=== PATIENT | male | born 1985 | race Caucasian/White ===

== ENCOUNTER 2019-12-07 16:06 | Emergency (ER) | payer OTHER ==
--- NOTE | 2019-12-07 16:25 | ED Physician Documentation ---
History of Present Illness - Stated complaint Stated Complaint: LEFT NECK SWELLING - Chief complaint Chief Complaint: Heent - History obtained from History obtained from: Patient - Additonal information Additional information: About a week and a half ago he developed a painful mass on the left side of the neck. Was seen in the walk-in clinic and was started on Augmentin. He has not resolved despite the Augmentin and he feels like the swelling has moved a bit posteriorly although it is not much larger. He denies fevers or chills. He is never had anything like this before except when he had mono as a teenager. Review of Systems Constitutional: reports: Reviewed and negative Eyes: reports: Reviewed and negative Ears: reports: Reviewed and negative Nose: reports: Reviewed and negative Throat: reports: Reviewed and negative PD PAST MEDICAL HISTORY - Past Surgical History Past Surgical History: Yes General: Cholecystectomy - Present Medications Home Medications: Ambulatory Orders Medication Instructions Recorded Confirmed Amoxicillin/Potassium Clav [Amox 1 each PO BID 12/07/19 12/07/19 Tr-K Clv 875-125 mg Tab] - Allergies Allergies/Adverse Reactions: Allergies Allergy/AdvReac Type Severity Reaction Status Date / Time No Known Drug Allergies Allergy Verified 12/07/19 16:13 - Social History Does the pt smoke?: Yes Smoking Status: Current every day smoker Does the pt drink ETOH?: Yes Does the pt have substance abuse?: No - Immunizations Immunizations are current?: Yes Immunizations: TDAP current <10years - POLST Patient has POLST: No PD ED PE NORMAL - Vitals Vital signs reviewed: Yes - General General: Alert and oriented X 3, No acute distress - HEENT HEENT: Other (There is about a 4 cm mobile tender mass, potentially slightly fluctuant inferior to the angle of the left mandible. No warmth or cellulitis. Visualized portions of the oropharynx are normal.) - Neck Neck: Supple, no meningeal sign - Neuro Neuro: Alert and oriented X 3, Normal speech Results - Vitals Vitals: Vital Signs - 24 hr 12/07/19 12/07/19 16:14 16:26 Temperature 36.6 C 37.5 C Heart Rate 67 66 Respiratory 16 22 Rate Blood Pressure 114/62 139/71 H O2 Saturation 98 100 Oxygen O2 Source Room air - Labs Labs: Laboratory Tests 12/07/19 12/07/19 16:44 16:44 WBC 9.0 RBC 5.14 Hgb 16.6 Hct 47.4 MCV 92.2 MCH 32.3 H MCHC 35.0 RDW 12.5 Plt Count 260 MPV 9.8 Neut # (Auto) 6.2 Lymph # (Auto) 1.9 [place] # (Auto) 0.8 Eos # (Auto) 0.0 Baso # (Auto) 0.1 Absolute Nucleated RBC 0.00 Nucleated RBC % 0.0 Sodium 139 Potassium 3.6 Chloride 102 Carbon Dioxide 24 Anion Gap 13.0 BUN 9 Creatinine 0.8 Estimated GFR (MDRD) 111 Glucose 95 Calcium 9.9 Total Bilirubin 2.6 H AST 18 ALT 18 Alkaline Phosphatase 49 Total Protein 8.1 Albumin 5.2 Globulin 2.9 Albumin/Globulin Ratio 1.8 Lipase 22 - Rads (name of study) Ct Neck with contrast Radiology: EMP read contemporaneously (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 Consistent with branchial cleft cyst infection both on physical examination and CT is concordant. Case discussed by phone with Dr. Jorge burk, ENT in [place]. It will probably be a couple of days before they can see him, and as such recommended a needle aspiration of the cyst to temporize with culture. This was done with both Visible and subjective improvement on his part. 15 mL was aspirated. It was pus. It was sent for culture. Departure - Departure Disposition: Home, Self Care Clinical Impression: Branchial cleft cyst Condition: Good Record reviewed to determine appropriate education?: Yes Instructions: ED Cyst Sebaceous Infec Abx Tx Comments: You were seen today for a left branchial cleft cyst with infection. I discussed your case with Dr. Jorge Burk who is an ear nose and throat surgeon in [place]. They would like you to call tomorrow, . He plans to see you on , but you should call sooner if worsening. We did do a needle aspiration of the cyst, a culture is pending and we will call if it is resistant to Augmentin.
[2019-12-07 16:54] LABS: BASOPHILS # (AUTO) 0.1 10^3/uL (0.0-0.1); BASOPHILS % (AUTO) 0.6 %; EOSINOPHILS % (AUTO) 0.3 %; HGB - HEMOGLOBIN 16.6 g/dL (14.0-18.0); LYMPHOCYTES # (AUTO) 1.9 10^3/uL (1.5-3.5); LYMPHOCYTES % (AUTO) 21.5 %; MEAN CORPUSCULAR HEMOGLOBIN 32.3 pg (27.0-31.0); MEAN CORPUSCULAR VOLUME 92.2 fL (80.0-94.0); MEAN PLATELET VOLUME 9.8 fL (7.4-11.4); MONOCYTES # (AUTO) 0.8 10^3/uL (0.0-1.0); MONOCYTES % (AUTO) 8.5 %; NEUTROPHILS # (AUTO) 6.2 10^3/uL (1.5-6.6); NEUTROPHILS % (AUTO) 68.8 %; PLT - PLATELET COUNT 260 10^3/uL (130-450); RED BLOOD COUNT 5.14 10^6/uL (4.70-6.10); RED CELL DISTRIBUTION WIDTH 12.5 % (12.0-15.0)
[2019-12-07] MEDS ORDERED: IOVERSOL 320 100 ML VIAL IVP ONE ×2 (17:02→17:39)
[2019-12-07 17:05] LABS: ALBUMIN 5.2 g/dL (3.2-5.5); ALBUMIN/GLOBULIN RATIO 1.8 (1.0-2.2); BILIRUBIN,TOTAL 2.6 mg/dL (0.2-1.0); CALCIUM 9.9 mg/dL (8.5-10.3); CREATININE 0.8 mg/dL (0.6-1.2); TOTAL PROTEIN 8.1 g/dL (6.7-8.2)
--- NOTE | 2019-12-07 17:54 | CT Report ---
PROCEDURE: SOFT TISSUE NECK W INDICATIONS: L neck mass CONTRAST: IV CONTRAST: Optiray 320 ml: 100 PO CONTRAST: *NO PO CONTRAST TECHNIQUE: After the administration of intravenous contrast, 3.0 mm axial sections acquired from the sella to th e aortic arch. Additional oblique axial 3.0 mm sections acquired through the pharynx. 3 mm thick co michael reformats were generated. For radiation dose reduction, the following was used: automated exp osure control, adjustment of mA and/or kV according to patient size. COMPARISON: None. FINDINGS: Image quality: Excellent. Lymph nodes: No enlarged lymph nodes seen throughout the neck. Vessels: Visualized vasculature appears patent. Neck spaces: Just deep to the soft tissue marker, along anterior aspect of the left sternocleidomasto id muscle, there is a water density cyst seen that measures 3 x 3 x 4.1 cm. A mild degree of rim enha ncement can be seen. No solid appearing masses are seen. The oropharynx, nasopharynx, and pharynx demonstrate no mucosal lesions. The vocal cords, false voca l cords, pyriform sinuses, epiglottis, vallecula, and tongue base all appear normal. Glands: The parotid and submandibular glands appear normal. The thyroid is normal in size. Miscellaneous: Visualized brain and orbits appear normal. Lung apices appear clear. Superficial so ft tissues appear normal. Bones: No suspicious bony lesions. Visualized sinuses and mastoids appear unremarkable. IMPRESSION: There is a water density cyst seen along the anterior aspect of the left sternocleidomastoid muscle. Given the mild rim enhancement, this may be infected. Please correlate with known patient history. 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 Reviewed by: Jose Hector MD on 12/07/2019 4:53 PM [email or web address] Approved by: Jose Hector MD on 12/07/2019 4:53 PM AKDT Station ID: [id number]
[2019-12-07] MEDS ORDERED: LIDOCAINE 1%-EPI 1:100000 20 ML MDV SUBQ STA (18:29)
[2019-12-07 18:52] VITALS: BP 137/107
== END 2019-12-07 18:51 | disposition home or self-care (01) ==
LOC: ED 16:06
DX: Q18.0 Sinus, fistula and cyst of branchial cleft (principal); F17.200 Nicotine dependence, unspecified, uncomplicated
CPT/HCPCS: 10160; 36415; 70491; 80053; 83690; 85025; 87070; 87205; 99282; 99284; Q9967

== ENCOUNTER 2020-03-10 20:18 | Inpatient (IN) | payer OTHER ==
[2020-03-10] MEDS ORDERED: HYDROmorphone 1 MG/ML CARPUJECT IVP STA ×2 (20:41→22:02)
[2020-03-10] MEDS ORDERED: SODIUM CHLORIDE 0.9% 1,000 ML IV STA (20:41)
[2020-03-10] MEDS ORDERED: ONDANSETRON 4 MG/2 ML VIAL IVP STA (20:41)
--- NOTE | 2020-03-10 20:46 | ED Physician Documentation ---
History of Present Illness - Stated complaint Stated Complaint: ABD PX/FEVER - Chief complaint Chief Complaint: Abd Pain - History obtained from History obtained from: Patient - History of Present Illness Timing: How many days ago (2) - Additonal information Additional information: 35-year-old male presents to the emergency department for evaluation of severe abdominal pain. He reports that it began as "generalized nonfocal" abdominal pain 2 days ago but has since migrated to the right side of the abdomen. He does report a history of previous cholecystectomy. He states that his thermostat has felt off and he has had no vomiting or diarrhea. He denies dysuria. On initial presentation to the emergency department this gentleman is in a kneeling position on the bed rocking back and forth moaning uncontrollably. It took quite some time before he could place himself into a supine position for labs and further evaluation. Review of Systems Constitutional: reports: Reviewed and negative Cardiac: reports: Reviewed and negative Respiratory: reports: Reviewed and negative GI: reports: Abdominal Pain. denies: Nausea, Vomiting : denies: Dysuria, Frequency, Hesitancy Skin: denies: Rash Musculoskeletal: reports: Reviewed and negative Neurologic: reports: Reviewed and negative PD PAST MEDICAL HISTORY - Past Medical History Past Medical History: Yes Other Past Medical History: Crigler-Najaar - Past Surgical History Past Surgical History: Yes General: Cholecystectomy - Present Medications Home Medications: Ambulatory Orders Medication Instructions Recorded Confirmed Amoxicillin/Potassium Clav [Amox 1 each PO BID 12/07/19 12/07/19 Tr-K Clv 875-125 mg Tab] - Allergies Allergies/Adverse Reactions: Allergies Allergy/AdvReac Type Severity Reaction Status Date / Time No Known Drug Allergies Allergy Verified 03/10/20 20:22 - Social History Does the pt smoke?: Yes Smoking Status: Current every day smoker Does the pt drink ETOH?: Yes Does the pt have substance abuse?: No - Immunizations Immunizations are current?: Yes Immunizations: TDAP current <10years - POLST Patient has POLST: No PD ED PE EXPANDED - General General: Alert, In Pain, In distress - Neck Neck: Supple w/out meningeal sx, No tenderness - Cardiac Cardiac: Regular Rate, Regular Rhythm, Radial strong equal, Pedal strong equal, Cap refill < 2 sec - Respiratory Respiratory: Clear to ausultation collette. No: Distress, Labored - Abdomen Abdomen: Tender to palpation, Rebound, Guarding (Right-sided abdominal tenderness with guarding and rebound.) - Derm Derm: Normal color. No: Rash - Neuro Neuro: Alert and Oriented X 3, CNII-XII intact - GCS Eye Opening: Spontaneous Motor: Obeys Commands Verbal: Oriented Total: 15 Results - Vitals Vitals: Vital Signs - 24 hr 03/10/20 20:22 Temperature 36.9 C Heart Rate 98 Respiratory 18 Rate Blood Pressure 133/86 H O2 Saturation 95 Oxygen O2 Source Room air - Labs Labs: Laboratory Tests 03/10/20 03/10/20 21:00 21:00 WBC 11.9 H RBC 5.37 Hgb 16.9 Hct 47.5 MCV 88.5 MCH 31.5 H MCHC 35.6 RDW 12.4 Plt Count 168 MPV 10.0 Neut # (Auto) 10.4 H Lymph # (Auto) 0.4 L [place] # (Auto) 1.0 Eos # (Auto) 0.0 Baso # (Auto) 0.0 Absolute Nucleated RBC 0.00 Nucleated RBC % 0.0 Sodium 134 L Potassium 3.8 Chloride 97 L Carbon Dioxide 22 Anion Gap 15.0 H BUN 8 Creatinine 1.0 Estimated GFR (MDRD) 86 L Glucose 162 H Calcium 9.5 Total Bilirubin 1.9 H AST 20 ALT 18 Alkaline Phosphatase 49 Total Protein 7.9 Albumin 4.4 Globulin 3.5 Albumin/Globulin Ratio 1.3 Lipase 16 L - Rads (name of study) CT abd Radiology: Final report received (Acute appendicitis. Thickening of cecum is likely secondary to direct spread of inflammation/infection. Small amount of free fluid in the right lower quadrant. No fluid collections to suggest abscess at this time.) PD MEDICAL DECISION MAKING - ED course Complexity details: reviewed results, re-evaluated patient, d/w patient ED course: 35-year-old male presents to the emergency department with 2 days of severe right-sided abdominal pain. Examined presentation is most worrisome for acute appendicitis. CT of the abdomen with contrast is pending as well as routine labs. 2200: CT scan is completed and findings are consistent with acute appendicitis. I have discussed this case with Dr. Lopez on surgery. She will write to admit the patient to the hospital with plan to take him to surgery in the a.m. Unasyn 3 g IV has been ordered. The case the plan has been discussed with the patient and he is in agreement. Additional IV pain medications have been ordered. Departure - Departure Disposition: ED Transfer to [facility] Clinical Impression: Acute appendicitis Qualifiers: Acute appendicitis type: with localized peritonitis Appendicitis gangrene presence: without gangrene Appendicitis perforation presence: unspecified whether perforation present Appendicitis abscess presence: unspecified whether abscess present Qualified Code(s): K35.30 - Acute appendicitis with localized peritonitis, without perforation or gangrene Condition: Stable
[2020-03-10] MEDS ORDERED: IOVERSOL 320 100 ML VIAL IVP ONE ×2 (20:58→21:44)
[2020-03-10 21:07] LABS: BASOPHILS % (AUTO) 0.3 %; EOSINOPHILS % (AUTO) 0.1 %; HGB - HEMOGLOBIN 16.9 g/dL (14.0-18.0); LYMPHOCYTES # (AUTO) 0.4 10^3/uL (1.5-3.5); LYMPHOCYTES % (AUTO) 2.9 %; MEAN CORPUSCULAR HEMOGLOBIN 31.5 pg (27.0-31.0); MEAN CORPUSCULAR HGB CONC 35.6 g/dL (32.0-36.0); MEAN CORPUSCULAR VOLUME 88.5 fL (80.0-94.0); MONOCYTES % (AUTO) 8.5 %; NEUTROPHILS # (AUTO) 10.4 10^3/uL (1.5-6.6); NEUTROPHILS % (AUTO) 87.6 %; PLT - PLATELET COUNT 168 10^3/uL (130-450); RED BLOOD COUNT 5.37 10^6/uL (4.70-6.10); RED CELL DISTRIBUTION WIDTH 12.4 % (12.0-15.0); WHITE BLOOD COUNT 11.9 x10^3/uL (4.8-10.8)
[2020-03-10 21:22] LABS: ALBUMIN 4.4 g/dL (3.2-5.5); ALBUMIN/GLOBULIN RATIO 1.3 (1.0-2.2); BILIRUBIN,TOTAL 1.9 mg/dL (0.2-1.0); CALCIUM 9.5 mg/dL (8.5-10.3); TOTAL PROTEIN 7.9 g/dL (6.7-8.2)
[2020-03-10] MEDS ORDERED: AMPICILLIN/SULBACTAM 3 GM in SODIUM CHLORIDE 0.9% MINIBAG 100 ML IV STA (21:56)
--- NOTE | 2020-03-10 21:57 | CT Report ---
PROCEDURE: Abdomen/Pelvis W INDICATIONS: 2 days right sided abdomianl pain; ? appy CONTRAST: IV CONTRAST: Optiray 320 ml: 100 PO CONTRAST: *NO PO CONTRAST TECHNIQUE: After the administration of intravenous contrast, 5 mm thick sections acquired from the diaphragms to the symphysis. 5 mm thick coronal and sagittal reformats were acquired. For radiation dose reducti on, the following was used: automated exposure control, adjustment of mA and/or kV according to beulah ent size. COMPARISON: None. FINDINGS: Image quality: Excellent. ABDOMEN: Lung bases: Lung bases are clear. Heart size is normal. Solid organs: Liver and spleen are normal in size and enhancement. Gallbladder is absent. Biliary system is non dilated. Pancreas enhances normally. No adrenal nodules. Kidneys demonstrate normal size and enhancement, without hydronephrosis. Peritoneum and bowel: Appendix is thickened measuring up to 11.5 mm in diameter. There is appendicea l wall thickening and increased enhancement. Appendicoliths are present. There is marked marcie-appendi ceal stranding. The CT findings are consistent with acute appendicitis. There is thickening of cecum, likely secondary to direct spread of inflammation and infection. A small amount of free fluid is pre sent in the right lower quadrant. No drainable fluid collections. No free air. Nodes and vessels: No retroperitoneal or mesenteric adenopathy by size criteria. Aorta and inferior vena cava are normal in size. Miscellaneous: No ventral hernias. PELVIS: Genitourinary: Bladder wall thickness is normal. Miscellaneous: No inguinal hernias or adenopathy. Bones: No suspicious bony lesions. No vertebral body compression fractures. IMPRESSION: 1. Acute appendicitis. 2. Thickening of cecum is likely secondary to direct spread of inflammation/infection. 3. There is a small amount of free fluid in the right lower quadrant. No fluid collections to suggest abscess at this time. 4. Cholecystectomy. The result was discussed with Dr. Dillon. Reviewed by: Dalton Fraser MD on 03/10/2020 9:56 PM PDT Approved by: Dalton Fraser MD on 03/10/2020 9:56 PM PDT Station ID: [id number]
[2020-03-10] MEDS ORDERED: ONDANSETRON 4 MG/2 ML VIAL IVP PRN (22:24)
[2020-03-10] MEDS ORDERED: HYDROmorphone 1 MG/ML CARPUJECT IVP PRN (22:24)
[2020-03-10] MEDS ORDERED: LORazepam 2 MG/ML VIAL IVP PRN (22:24)
[2020-03-10] MEDS ORDERED: SODIUM CHLORIDE FLUSH 0.9% 10 ML SYRINGE IVP PRN (22:24)
[2020-03-10] MEDS ORDERED: DEXTROSE 5%-0.45% NACL 1,000 ML IV SCH (23:00)
[2020-03-10] MEDS ORDERED: ACETAMINOPHEN 1,000 MG/100 ML 100 ML IV SCH (23:00)
[2020-03-11] MEDS ORDERED: LORazepam 2 MG/ML VIAL IVP PRN (00:34)
[2020-03-11] MEDS ORDERED: ACETAMINOPHEN 1,000 MG/100 ML 100 ML IV SCH (01:00)
[2020-03-11] MEDS: D5.45NS W/20 MEQ KCL 1,000 ML IV SCH ×3 (01:24→20:02)
[2020-03-11] MEDS: SODIUM CHLORIDE FLUSH 0.9% 10 ML SYRINGE IVP SCH ×7 (01:24→23:52)
[2020-03-11] MEDS: HYDROmorphone 0.5 MG/0.5 ML SYRINGE IVP PRN ×2 (02:05→04:56)
[2020-03-11] MEDS ORDERED: AMPICILLIN/SULBACTAM 3 GM in SODIUM CHLORIDE 0.9% MINIBAG 100 ML IV SCH ×5 (03:00→04:00)
[2020-03-11] MEDS ORDERED: CALAMINE/ZINC OXIDE 177 ML BOTTLE TOP PRN (04:13)
[2020-03-11 05:47] LABS: BASOPHILS % (AUTO) 0.3 %; EOSINOPHILS % (AUTO) 0.3 %; LYMPHOCYTES # (AUTO) 0.6 10^3/uL (1.5-3.5); LYMPHOCYTES % (AUTO) 5.8 %; MEAN CORPUSCULAR HEMOGLOBIN 31.5 pg (27.0-31.0); MEAN CORPUSCULAR HGB CONC 34.9 g/dL (32.0-36.0); MEAN CORPUSCULAR VOLUME 90.3 fL (80.0-94.0); MEAN PLATELET VOLUME 10.2 fL (7.4-11.4); MONOCYTES # (AUTO) 1.2 10^3/uL (0.0-1.0); MONOCYTES % (AUTO) 11.4 %; NEUTROPHILS # (AUTO) 8.3 10^3/uL (1.5-6.6); NEUTROPHILS % (AUTO) 81.8 %; PLT - PLATELET COUNT 141 10^3/uL (130-450); RED BLOOD COUNT 4.76 10^6/uL (4.70-6.10); RED CELL DISTRIBUTION WIDTH 12.5 % (12.0-15.0); WHITE BLOOD COUNT 10.1 x10^3/uL (4.8-10.8)
[2020-03-11 05:51] LABS: CALCIUM 8.3 mg/dL (8.5-10.3); CREATININE 0.9 mg/dL (0.6-1.2)
[2020-03-11] MEDS: PANTOPRAZOLE 40 MG VIAL IVP SCH (06:20)
[2020-03-11] MEDS ORDERED: PANTOPRAZOLE 40 MG VIAL IVP SCH (07:00)
[2020-03-11] MEDS: HYDROmorphone 1 MG/ML CARPUJECT IVP PRN ×11 (07:52→23:47)
[2020-03-11] MEDS: ACETAMINOPHEN 1,000 MG/100 ML 100 ML IV SCH ×3 (07:52→19:39)
[2020-03-11] MEDS: SODIUM CHLORIDE FLUSH 0.9% 10 ML SYRINGE IVP PRN ×2 (07:52→07:56)
[2020-03-11] MEDS: ONDANSETRON 4 MG/2 ML VIAL IVP PRN ×2 (07:55→15:18)
[2020-03-11] MEDS: AMPICILLIN/SULBACTAM 3 GM in SODIUM CHLORIDE 0.9% MINIBAG 100 ML IV SCH ×3 (10:30→23:47)
--- NOTE | 2020-03-11 11:31 | ANESTHESIA ---
Pre-Anesthesia VS, & Labs - Diagnosis Acute appendicitis - Procedure Lap Appy Vital Signs: Temp Pulse Resp BP Pulse Ox 37.1 C 76 16 110/56 L 97 03/11/20 07:48 03/11/20 07:48 03/11/20 07:48 03/11/20 07:48 03/11/20 07:48 Height: 6 ft Weight (kg): 72.5 kg Body Mass Index: 21.7 BMI Classification: Healthy weight - NPO >8 hours - Lab Results Current Lab Results: Laboratory Tests 03/11/20 05:40: Sodium 133 L, Potassium 3.3 L, Chloride 101, Carbon Dioxide 21, Anion Gap 11.0, BUN 7, Creatinine 0.9, Estimated GFR (MDRD) 97, Glucose 125 H, Calcium 8.3 L 03/11/20 05:40: WBC 10.1, RBC 4.76, Hgb 15.0, Hct 43.0, MCV 90.3, MCH 31.5 H, MCHC 34.9, RDW 12.5, Plt Count 141, MPV 10.2, Neut # (Auto) 8.3 H, Lymph # (Auto) 0.6 L, [place] # (Auto) 1.2 H, Eos # (Auto) 0.0, Baso # (Auto) 0.0, Absolute Nucleated RBC 0.00, Nucleated RBC % 0.0 03/10/20 21:00: Sodium 134 L, Potassium 3.8, Chloride 97 L, Carbon Dioxide 22, Anion Gap 15.0 H, BUN 8, Creatinine 1.0, Estimated GFR (MDRD) 86 L, Glucose 162 H, Calcium 9.5, Total Bilirubin 1.9 H, AST 20, ALT 18, Alkaline Phosphatase 49, Total Protein 7.9, Albumin 4.4, Globulin 3.5, Albumin/Globulin Ratio 1.3, Lipase 16 L 03/10/20 21:00: WBC 11.9 H, RBC 5.37, Hgb 16.9, Hct 47.5, MCV 88.5, MCH 31.5 H, MCHC 35.6, RDW 12.4, Plt Count 168, MPV 10.0, Neut # (Auto) 10.4 H, Lymph # (Auto) 0.4 L, [place] # (Auto) 1.0, Eos # (Auto) 0.0, Baso # (Auto) 0.0, Absolute Nucleated RBC 0.00, Nucleated RBC % 0.0 Fish Bones: 03/11/20 05:40 03/11/20 05:40 Home Medications and Allergies Home Medications: Ambulatory Orders No Known Home Medications 03/11/20 Active Medications Calamine (Calamine Lotion) 1 applic TOP PRN PRN PRN Reason: SKIN CARE Hydromorphone HCl (Dilaudid Inj Carp) 1 mg IVP Q1HR PRN PRN Reason: PAIN Last Admin: 03/11/20 07:52 Dose: 1 mg Documented by: Potassium Chloride/Dextrose/Sod Cl (D5.45ns W/20 Meq Kcl) 1,000 mls @ 100 mls/hr IV .Q10H COUNT INCLUDES THE [facility] Last Infusion: 03/11/20 04:45 Dose: 100 mls/hr Documented by: Acetaminophen (Ofirmev) 100 mls @ 400 mls/hr IV Q6H COUNT INCLUDES THE [facility] Last Admin: 03/11/20 07:52 Dose: 400 mls/hr Documented by: Ampicillin Sodium/Sulbactam (Sodium 3 gm/ Sodium Chloride) 100 mls @ 200 mls/hr IV Q6HR COUNT INCLUDES THE [facility] Last Admin: 03/11/20 10:30 Dose: 200 mls/hr Documented by: Lorazepam (Ativan Inj (Vial)) 0.5 mg IVP Q1H PRN PRN Reason: Anxiety Ondansetron HCl (Zofran Inj) 4 mg IVP Q6H PRN PRN Reason: Nausea / Vomiting Last Admin: 03/11/20 07:55 Dose: 4 mg Documented by: Pantoprazole Sodium (Protonix) 40 mg IVP QDAC COUNT INCLUDES THE [facility] Last Admin: 03/11/20 06:20 Dose: 40 mg Documented by: Sodium Chloride (Normal Saline Flush 0.9%) 10 ml IVP 0100,0900,1700 COUNT INCLUDES THE [facility] Last Admin: 03/11/20 07:52 Dose: 10 ml Documented by: Sodium Chloride (Normal Saline Flush 0.9%) 10 ml IVP 0100,0900,1700 COUNT INCLUDES THE [facility] Last Admin: 03/11/20 02:06 Dose: Not Given Documented by: Sodium Chloride (Normal Saline Flush 0.9%) 10 ml IVP PRN PRN PRN Reason: NEEDED PER PROVIDER ORDERS Last Admin: 03/11/20 07:56 Dose: 10 ml Documented by: No Known Home Medications 03/11/20 Allergies/Adverse Reactions: Allergies Allergy/AdvReac Type Severity Reaction Status Date / Time No Known Drug Allergies Allergy Verified 03/10/20 20:22 Anes History & Medical History - Anesthetic History Anesthesia Complications: reports: No previous complications - Medical History Cardiovascular: reports: None Pulmonary: reports: None Gastrointestinal: reports: Other (Crigler-Elvia) Urinary: reports: None Neuro: reports: None Musculoskeletal: reports: None Endocrine/Autoimmune: reports: None, Other Blood Disorders: reports: None Skin: reports: None Smoking Status: Former smoker (Quit 05/13/2019) Psychosocial: reports: No issues indicated History of Cancer?: No Other Past Medical History: Crigler-Najaar - Surgical History General: Cholecystectomy Orthopedic: Other (right femur fracture s/p ORIF. Patellar tendon rupture) Exam General: Alert, Oriented x3, Cooperative, No acute distress Dental: WNL Mouth Openin Fingerbreadth Neck Mobility: Normal Mallampati classification: II Thyromental Distance: 4-6 cm Mental/Cognitive Status: Alert/Oriented X3, Normal for patient Plan Anesthesia Type: General Consent for Procedure(s) Verified and Reviewed: Yes Code Status: Attempt Resuscitation ASA classification: 2-Mild systemic disease Is this case an emergency?: No
--- NOTE | 2020-03-11 13:50 | HISTORY & PHYSICAL EXAMINATION ---
HPI - Admitted From Admitted from: ED - History Obtained From Records Reviewed: RN notes reviewed History obtained from: Patient Exam limitations: No limitations - History of Present Illness Pain/Problem Location Description: Mid and right lower quadrant abdominal pain. Severity at the worst: reports: Severe Pain Quality: reports: Sharp, Aching, Cramping Context-Pain started w/: reports: Rest Timing: reports: Gradual onset Duration: reports: Days: (2-3) Improved with: reports: Nothing Worsened by: reports: Exertion, Movement, Palpation Associated symptoms: reports: Nausea, General Weakness. denies: Shortness of air, Diaphoresis, Vomiting, Palpitations, Cough PMH/PSH - Past Medical History Cardiovascular: positive: None Respiratory: positive: None Neuro: positive: None Endocrine/Autoimmune: positive: None, Other GI: positive: Other (Tresagler-Elvia) : positive: None Musculoskeletal: positive: None Derm: positive: None MRSA Hx?: No Other Past Medical History: Elaine - Past Surgical History General: positive: Cholecystectomy Ortho: positive: Other (right femur fracture s/p ORIF. Patellar tendon rupture) Social & Family Hx - Social History Does the pt smoke?: Yes Smoking Status: Former smoker (Quit 05/13/2019) Does the pt drink ETOH?: Yes Does the pt have substance abuse?: No - POLST Patient has POLST: No Meds/Allgy - Home Medications Home Medications: Ambulatory Orders Medication Instructions Recorded Confirmed No Known Home Medications 03/11/20 03/11/20 - Allergies Allergies/Adverse Reactions: Allergies Allergy/AdvReac Type Severity Reaction Status Date / Time No Known Drug Allergies Allergy Verified 03/10/20 20:22 Review of Systems - Constitutional Constitutional: reports: Chills, Malaise. denies: Fatigue, Fever - Eyes Eyes: denies: Pain, Irritation - Ears, Nose & Throat Ears, Nose & Throat: denies: Hearing loss, Hearing aids, Tinnitus, Vertigo - Cardiovascular Cariovascular: denies: Irregular heart rate, Palpitations, Chest pain, Edema - Respiratory Respiratory: denies: Cough, Sputum production, Wheezing - Gastrointestinal Gastrointestinal: reports: Abdominal pain, Nausea, Poor appetite. denies: Abdominal distention, Constipation, Black stools, Bloody stools, Reflux/heartburn, Bloating - Genitourinary Genitourinary: denies: Dysuria, Frequency - Musculoskeletal Musculoskeletal: denies: Muscle pain, Back pain, Muscle aches, Stiffness - Integumentary Integumentary: denies: Rash - Neurological Neurological: denies: General weakness, Focal weakness - Endocrine Endocrine: denies: Polyuria - Hematologic/Lymphatic Hematologic/Lymphatic: denies: Bruising - All Other Systems All Other Systems: reports: Reviewed and negative Exam - Vital Signs Reviewed Vital Signs: Yes Vital Signs: Vital Signs x48h Temp Pulse Resp BP Pulse Ox 03/11/20 12:09 37.0 C 74 16 116/55 L 98 03/11/20 07:48 37.1 C 76 16 110/56 L 97 03/11/20 06:29 36.9 C 71 16 115/52 L 97 - Physical Exam General Appearance: positive: Alert, Mild distress Eyes Bilateral: positive: Normal inspection, PERRL, EOMI ENT: positive: ENT inspection nml, Pharynx nml, No signs of dehydration Neck: positive: Nml inspection, Thyroid nml, No JVD Respiratory: positive: Chest non-tender, No respiratory distress Cardiovascular: positive: Regular rate & rhythm, No murmur, No gallop Peripheral Pulses: positive: 2+ Abdomen: positive: Tenderness, Guarding, Rebound Back: positive: Nml inspection. negative: CVA tenderness (R), CVA tenderness (L) Skin: positive: Color nml Extremities: positive: Non-tender, Full ROM, Nml appearance. negative: Calf tenderness Neurologic/Psychiatric: positive: Oriented x3 Results - Lab Results Fish Bones: 03/11/20 05:40 03/11/20 05:40 Other Lab Results: Lab Results x24hrs 03/11/20 03/11/20 03/10/20 Range/Units 05:40 05:40 21:00 WBC 10.1 (4.8-10.8) x10^3/uL RBC 4.76 (4.70-6.10) 10^6/uL Hgb 15.0 (14.0-18.0) g/dL Hct 43.0 (42.0-52.0) % MCV 90.3 (80.0-94.0) fL MCH 31.5 H (27.0-31.0) pg MCHC 34.9 (32.0-36.0) g/dL RDW 12.5 (12.0-15.0) % Plt Count 141 (130-450) 10^3/uL MPV 10.2 (7.4-11.4) fL Neut # (Auto) 8.3 H (1.5-6.6) 10^3/uL Lymph # (Auto) 0.6 L (1.5-3.5) 10^3/uL [place] # (Auto) 1.2 H (0.0-1.0) 10^3/uL Eos # (Auto) 0.0 (0.0-0.7) 10^3/uL Baso # (Auto) 0.0 (0.0-0.1) 10^3/uL Absolute Nucleated RBC 0.00 x10^3/uL Nucleated RBC % 0.0 /100WBC Sodium 133 L 134 L (135-145) mmol/L Potassium 3.3 L 3.8 (3.5-5.0) mmol/L Chloride 101 97 L (101-111) mmol/L Carbon Dioxide 21 22 (21-32) mmol/L Anion Gap 11.0 15.0 H (6-13) BUN 7 8 (6-20) mg/dL Creatinine 0.9 1.0 (0.6-1.2) mg/dL Estimated GFR (MDRD) 97 86 L (>89) Glucose 125 H 162 H (70-100) mg/dL Calcium 8.3 L 9.5 (8.5-10.3) mg/dL Total Bilirubin 1.9 H (0.2-1.0) mg/dL AST 20 (10-42) IU/L ALT 18 (10-60) IU/L Alkaline Phosphatase 49 (42-121) IU/L Total Protein 7.9 (6.7-8.2) g/dL Albumin 4.4 (3.2-5.5) g/dL Globulin 3.5 (2.1-4.2) g/dL Albumin/Globulin Ratio 1.3 (1.0-2.2) Lipase 16 L (22-51) U/L 03/10/20 Range/Units 21:00 WBC 11.9 H (4.8-10.8) x10^3/uL RBC 5.37 (4.70-6.10) 10^6/uL Hgb 16.9 (14.0-18.0) g/dL Hct 47.5 (42.0-52.0) % MCV 88.5 (80.0-94.0) fL MCH 31.5 H (27.0-31.0) pg MCHC 35.6 (32.0-36.0) g/dL RDW 12.4 (12.0-15.0) % Plt Count 168 (130-450) 10^3/uL MPV 10.0 (7.4-11.4) fL Neut # (Auto) 10.4 H (1.5-6.6) 10^3/uL Lymph # (Auto) 0.4 L (1.5-3.5) 10^3/uL [place] # (Auto) 1.0 (0.0-1.0) 10^3/uL Eos # (Auto) 0.0 (0.0-0.7) 10^3/uL Baso # (Auto) 0.0 (0.0-0.1) 10^3/uL Absolute Nucleated RBC 0.00 x10^3/uL Nucleated RBC % 0.0 /100WBC Sodium (135-145) mmol/L Potassium (3.5-5.0) mmol/L Chloride (101-111) mmol/L Carbon Dioxide (21-32) mmol/L Anion Gap (6-13) BUN (6-20) mg/dL Creatinine (0.6-1.2) mg/dL Estimated GFR (MDRD) (>89) Glucose (70-100) mg/dL Calcium (8.5-10.3) mg/dL Total Bilirubin (0.2-1.0) mg/dL AST (10-42) IU/L ALT (10-60) IU/L Alkaline Phosphatase (42-121) IU/L Total Protein (6.7-8.2) g/dL Albumin (3.2-5.5) g/dL Globulin (2.1-4.2) g/dL Albumin/Globulin Ratio (1.0-2.2) Lipase (22-51) U/L - Diagnostic Imaging Results Diagnostic Imaging Results Comments: Acute appendicitis with a small amount of free fluid in the right lower quadrant. No mass or clear evidence of abscess. Impression/Plan - Problem List Problem List: Acute appendicitis with likely rupture. I have recommended urgent diagnostic laparoscopy with appendectomy and indicated procedures. We have discussed the risks and benefits of the procedure and the patient has expressed a desire to complete the procedure today.
[2020-03-11] MEDS ORDERED: LIDOCAINE 1%-EPI 1:100000 20 ML MDV ONE ×2 (14:00→15:41)
[2020-03-11] MEDS ORDERED: BUPIVACAINE 0.5% PF 30 ML VIAL ONE ×2 (14:00→15:41)
[2020-03-11] MEDS ORDERED: BUPIVACAINE 0.5% PF 30 ML VIAL SUBQ ONE ×2 (15:53→16:55)
[2020-03-11] MEDS ORDERED: LIDOCAINE 1%-EPI 1:100000 20 ML MDV SUBQ ONE ×2 (15:53→16:55)
[2020-03-11] MEDS ORDERED: KETOROLAC 30 MG/ML VIAL IVP ONE (16:10)
[2020-03-11] MEDS ORDERED: ROCURONIUM 50 MG/5 ML VIAL IVP ONE (16:10)
[2020-03-11] MEDS ORDERED: PROPOFOL 200 MG/20 ML VIAL IVP ONE (16:10)
[2020-03-11] MEDS ORDERED: ONDANSETRON 4 MG/2 ML VIAL IVP ONE (16:10)
[2020-03-11] MEDS ORDERED: LIDOCAINE-MPF 2% 5 ML VIAL IM ONE (16:10)
[2020-03-11] MEDS ORDERED: DEXAMETHASONE 4 MG/ML VIAL IVP ONE (16:10)
[2020-03-11] MEDS ORDERED: MIDAZOLAM 2 MG/2 ML VIAL IVP ONE (16:10)
[2020-03-11] MEDS ORDERED: NEOSTIGMINE 1 MG/1 ML 10 ML MDV IVP ONE (16:10)
[2020-03-11] MEDS ORDERED: fentaNYL 100 MCG/2 ML VIAL IVP ONE (16:10)
[2020-03-11] MEDS ORDERED: GLYCOPYRROLATE 1 MG/5 ML VIAL IVP ONE (16:10)
--- NOTE | 2020-03-11 17:04 | OPERATIVE REPORT ---
Operative Report - General Admit Date: 03/11/20 Procedure Date: 03/11/20 Planned Procedure: Laparoscopy with appendectomy Pre-Op Diagnosis: Acute appendicitis Procedure Performed: Laparoscopy with appendectomy and drain placement Post Op Diagnosis: Perforated appendicitis with right lower quadrant abscess - Procedure Note Primary Surgeon: Elham Anesthesia Provider: COURTNEY Sanders Anesthesia Technique: General ET tube, Local Pathology: Appendix to pathology in formalin Estimated Blood Loss (mL): 20 Drain/Tube Type: Satinder drain Findings: Perforated appendicitis with large RLQ phlegmon and abscess Complications: None apparent - Other Other Information/Narrative: After obtaining informed consent, the patient is brought to the operating room and placed in the supine position on the operating table. Following successful induction of general endotracheal anesthesia, appropriate padding of all bony prominences, and placement of appropriate monitors, the abdomen was prepped and draped in the standard surgical fashion. A timeout was held per scope protocol. All elements of the surgical safety checklist were followed before, during, and after the procedure. Following infiltration with local anesthetic to create a field block, an incision was created inferior to the umbilicus and carried down through the skin and subcutaneous tissue to reveal the fascia below. 2-0 Vicryl retention sutures were placed on either side of the midline and the abdomen was entered under direct vision using a 15 blade scalpel. A 10 mm blunt Rhodes balloon trocar was placed in the abdominal cavity and it was insufflated to 15 mmHg pressure. The patient was placed in Trendelenburg position with the left side rotated toward the floor. The camera was placed in the abdominal cavity and we immediately visualized an inflammatory process in the right lower quadrant including the cecum and distal ileum. The cecum was rotated medially to reveal a very long appendix with necrosis and perforation of the retro cecal portion of the structure. This was associated with a thick and foul smelling abscess cavity. Gentle lysis of adhesions was undertaken and the anatomy carefully defined. The mesentery of the appendix was foreshortened and stiff. The appendix was quite difficult to mobilize. This was done with great care until the entire structure was clearly visualized from its attachment at the cecum to the tip. A window was created in the mesoappendix at this location. A laparoscopic stapling device was used to ligate the appendix and liberated from its attachment to the cecum. Two additional loads of the device were used to divide its mesentery.The appendix was placed in an Endo Catch bag and removed via the umbilical port with a camera in the epigastric position. The camera was replaced in the operative site examined. It was irrigated with warm saline solution and aspirated free of all fluid and particulate matter. A Satinder drain was placed through the umblilical port and brought out in the suprpubic position. This was positioned in the right para colic gutter and through the abscess cavity. It was sewn into place. The table was flattened and the abdomen evaluated once again. The trochars were removed under direct vision and abdomen was desufflated. The umbilical incision was closed with interrupted Vicryl suture and Monocryl stitches were placed in the skin. All sponge, needles, and instrument counts were correct at the conclusion of the case. The patient was allowed to wake from anesthesia without difficulty and taken to the postanesthesia care unit in good condition.
[2020-03-11] MEDS ORDERED: LACTATED RINGERS 1,000 ML IV ONE (17:09)
[2020-03-11] MEDS ORDERED: fentaNYL 100 MCG/2 ML VIAL IVP PRN (17:24)
[2020-03-11] MEDS ORDERED: NALOXONE 0.4 MG/ML VIAL IVP PRN (17:24)
[2020-03-11] MEDS ORDERED: HYDROmorphone 0.5 MG/0.5 ML SYRINGE IVP PRN (17:24)
[2020-03-11] MEDS ORDERED: ONDANSETRON 4 MG/2 ML VIAL IVP PRN (17:24)
[2020-03-11] MEDS ORDERED: ATROPINE ABBOJECT 1 MG/10 ML SYRINGE IVP PRN (17:24)
[2020-03-11] MEDS ORDERED: MORPHINE 2 MG/ML CARPUJECT IVP PRN (17:24)
--- NOTE | 2020-03-11 17:24 | ANESTHESIA POST OP EVALUATION ---
Anesthesia Post Eval - Post Anesthesia Eval Vitals: Last Vital Signs Temp 37.5 C 03/11/20 15:45 Pulse 65 03/11/20 15:45 Resp 18 03/11/20 15:45 BP 115/54 L 03/11/20 16:00 Pulse Ox 95 03/11/20 15:45 CV Function Including HR & BP: positive: Stable Pain Control: positive: Satisfactory Nausea & Vomiting: positive: Negative Mental Status: positive: Baseline Respiratory Status: Airway Patent Hydration Status: Satisfactory Anesthesia Complications: positive: None
[2020-03-11] MEDS ORDERED: HYDROmorphone 1 MG/ML CARPUJECT ONE (17:35)
[2020-03-11] MEDS ORDERED: LACTATED RINGERS 1,000 ML IV SCH (18:00)
[2020-03-11] MEDS: PREGABALIN 25 MG CAPSULE PO SCH (20:02)
[2020-03-11] MEDS: methocarbamoL 500 MG TABLET PO PRN (22:01)
[2020-03-12] MEDS: ONDANSETRON 4 MG/2 ML VIAL IVP PRN (00:03)
[2020-03-12] MEDS: SODIUM CHLORIDE FLUSH 0.9% 10 ML SYRINGE IVP SCH ×6 (00:52→23:47)
[2020-03-12] MEDS: ACETAMINOPHEN 1,000 MG/100 ML 100 ML IV SCH ×4 (01:26→20:25)
[2020-03-12] MEDS: HYDROmorphone 1 MG/ML CARPUJECT IVP PRN ×9 (03:51→18:01)
[2020-03-12] MEDS: methocarbamoL 500 MG TABLET PO PRN ×3 (04:25→16:47)
[2020-03-12] MEDS: AMPICILLIN/SULBACTAM 3 GM in SODIUM CHLORIDE 0.9% MINIBAG 100 ML IV SCH ×4 (06:04→23:46)
[2020-03-12] MEDS: PANTOPRAZOLE 40 MG VIAL IVP SCH (06:04)
[2020-03-12 06:10] LABS: BASOPHILS % (AUTO) 0.1 %; EOSINOPHILS % (AUTO) 0.1 %; LYMPHOCYTES # (AUTO) 0.5 10^3/uL (1.5-3.5); MEAN CORPUSCULAR HGB CONC 33.9 g/dL (32.0-36.0); MEAN CORPUSCULAR VOLUME 91.4 fL (80.0-94.0); MEAN PLATELET VOLUME 10.7 fL (7.4-11.4); MONOCYTES # (AUTO) 0.9 10^3/uL (0.0-1.0); MONOCYTES % (AUTO) 13.4 %; NEUTROPHILS # (AUTO) 5.5 10^3/uL (1.5-6.6); NEUTROPHILS % (AUTO) 79.1 %; PLT - PLATELET COUNT 129 10^3/uL (130-450); RED CELL DISTRIBUTION WIDTH 12.7 % (12.0-15.0)
[2020-03-12 06:15] LABS: CREATININE 0.8 mg/dL (0.6-1.2)
[2020-03-12] MEDS: PREGABALIN 25 MG CAPSULE PO SCH ×2 (08:50→21:19)
[2020-03-12] MEDS: D5.45NS W/20 MEQ KCL 1,000 ML IV SCH (08:50)
[2020-03-12] MEDS: oxyCODONE 5 MG TABLET PO PRN ×4 (11:18→22:53)
--- NOTE | 2020-03-12 13:22 | PROVIDER PROGRESS NOTE ---
Subjective - General Admit Date: 03/11/20 Procedure Date: 03/11/20 Post Op Days: 1 Procedure Performed: Lap Appy with evacuation of abscess and drain placement - Review of Systems Wound/Incisions: positive: Healing well Drain Type: Satinder Drain Output Description: Serous with a few stringy clots Approximate mls Output: minimal General: positive: No symptoms HEENT: positive: No symptoms Pulmonary: positive: No symptoms Cardiovascular: positive: No symptoms Gastrointestinal: positive: No symptoms Genitourinary: positive: No symptoms All Other Systems: positive: Reviewed and negative - Other Other Information/Narrative: Pain has been an issue but he feels it is under better control at the moment. No nausea. Watching television with legs bent in the bed Objective - Patient Data Vital Signs: Vital Signs x48h Temp Pulse Pulse Resp BP Pulse Ox 03/12/20 11:40 36.6 C 78 20 112/67 99 03/12/20 08:59 37.0 C 72 18 115/54 L 98 Weight: Weight 03/10/20 03/11/20 03/12/20 23:59 23:59 23:59 Weight (kg) 77.111 kg 72.5 kg Intake & Output: Intake and Output Totals x24h 03/10/20 03/11/20 03/12/20 23:59 23:59 23:59 Intake Total 1100 3197.667 1540.000 Output Total 840 545 Balance 1100 2357.667 995.000 - Lab Results Lab Results: 03/12/20 05:16 03/12/20 05:16 Other Lab Results: Lab Results x24hrs 03/12/20 03/12/20 Range/Units 05:16 05:16 WBC 7.0 (4.8-10.8) x10^3/uL RBC 4.20 L (4.70-6.10) 10^6/uL Hgb 13.0 L (14.0-18.0) g/dL Hct 38.4 L (42.0-52.0) % MCV 91.4 (80.0-94.0) fL MCH 31.0 (27.0-31.0) pg MCHC 33.9 (32.0-36.0) g/dL RDW 12.7 (12.0-15.0) % Plt Count 129 L (130-450) 10^3/uL MPV 10.7 (7.4-11.4) fL Neut # (Auto) 5.5 (1.5-6.6) 10^3/uL Lymph # (Auto) 0.5 L (1.5-3.5) 10^3/uL [place] # (Auto) 0.9 (0.0-1.0) 10^3/uL Eos # (Auto) 0.0 (0.0-0.7) 10^3/uL Baso # (Auto) 0.0 (0.0-0.1) 10^3/uL Absolute Nucleated RBC 0.00 x10^3/uL Nucleated RBC % 0.0 /100WBC Sodium 136 (135-145) mmol/L Potassium 3.6 (3.5-5.0) mmol/L Chloride 103 (101-111) mmol/L Carbon Dioxide 23 (21-32) mmol/L Anion Gap 10.0 (6-13) BUN 6 (6-20) mg/dL Creatinine 0.8 (0.6-1.2) mg/dL Estimated GFR (MDRD) 111 (>89) Glucose 119 H (70-100) mg/dL Calcium 8.0 L (8.5-10.3) mg/dL - Current Medications Current Medications: Current Medications Generic Name Dose Route Start Last Admin Trade Name Freq PRN Reason Stop Dose Admin Hydromorphone HCl 1 mg 03/12/20 10:48 03/12/20 12:38 Dilaudid Inj Carp IVP 1 mg Q1H PRN Administration Breakthrough Pain Acetaminophen 100 mls @ 400 mls/hr 03/11/20 08:00 03/12/20 07:47 Ofirmev IV Not Given Q6H MILVIA Ampicillin Sodium/Sulbactam 100 mls @ 200 mls/hr 03/11/20 11:00 03/12/20 11:31 Sodium 3 gm/ Sodium Chloride IV 200 mls/hr Q6HR MILVIA Administration Methocarbamol 500 mg 03/11/20 19:06 03/12/20 10:20 Robaxin PO 500 mg Q6HR PRN Administration Spasms Ondansetron HCl 4 mg 03/11/20 00:34 03/12/20 00:03 Zofran Inj IVP 4 mg Q6H PRN Administration Nausea / Vomiting Oxycodone HCl 5 mg 03/12/20 10:41 03/12/20 11:18 Roxicodone PO 5 mg Q4HR PRN Administration PAIN Pantoprazole Sodium 40 mg 03/11/20 07:00 03/12/20 06:04 Protonix IVP 40 mg QDAC MILVIA Administration Pregabalin 75 mg 03/11/20 21:00 03/12/20 08:50 Lyrica PO 75 mg BID MILVIA Administration Sodium Chloride 10 ml 03/11/20 01:00 03/12/20 08:51 Normal Saline Flush 0.9% IVP Not Given 0100,0900,1700 MILVIA Sodium Chloride 10 ml 03/11/20 01:00 03/12/20 08:53 Normal Saline Flush 0.9% IVP Not Given 0100,0900,1700 MILVIA Sodium Chloride 10 ml 03/11/20 00:34 03/11/20 07:56 Normal Saline Flush 0.9% IVP 10 ml PRN PRN Administration NEEDED PER PROVIDER ORDERS ABX Reporting Has patient been on IV antibiotics over the past 48 hours?: Yes Impression/Plan - Problem List Problem List: Continue antibiotics and current pain regimen as changed this morning. We need the drain for at least 48 hours. Labs are reassurring.
[2020-03-12] MEDS: SODIUM CHLORIDE FLUSH 0.9% 10 ML SYRINGE IVP PRN (20:25)
[2020-03-12] MEDS: KETOROLAC 30 MG/ML VIAL IVP SCH (20:26)
[2020-03-13] MEDS: SODIUM CHLORIDE FLUSH 0.9% 10 ML SYRINGE IVP SCH ×5 (00:55→17:41)
[2020-03-13] MEDS: HYDROmorphone 1 MG/ML CARPUJECT IVP PRN ×7 (00:58→21:18)
[2020-03-13] MEDS: ACETAMINOPHEN 1,000 MG/100 ML 100 ML IV SCH ×4 (01:23→20:03)
[2020-03-13] MEDS: oxyCODONE 5 MG TABLET PO PRN ×5 (03:19→21:56)
[2020-03-13] MEDS: ONDANSETRON 4 MG/2 ML VIAL IVP PRN ×2 (03:27→17:30)
[2020-03-13 05:43] LABS: BASOPHILS % (AUTO) 0.5 %; EOSINOPHILS # (AUTO) 0.1 10^3/uL (0.0-0.7); EOSINOPHILS % (AUTO) 0.8 %; HGB - HEMOGLOBIN 12.6 g/dL (14.0-18.0); LYMPHOCYTES # (AUTO) 0.9 10^3/uL (1.5-3.5); LYMPHOCYTES % (AUTO) 14.7 %; MEAN CORPUSCULAR HEMOGLOBIN 30.9 pg (27.0-31.0); MEAN CORPUSCULAR HGB CONC 33.7 g/dL (32.0-36.0); MEAN CORPUSCULAR VOLUME 91.7 fL (80.0-94.0); MEAN PLATELET VOLUME 10.2 fL (7.4-11.4); MONOCYTES % (AUTO) 16.4 %; NEUTROPHILS # (AUTO) 4.3 10^3/uL (1.5-6.6); NEUTROPHILS % (AUTO) 67.1 %; PLT - PLATELET COUNT 137 10^3/uL (130-450); RED BLOOD COUNT 4.08 10^6/uL (4.70-6.10); RED CELL DISTRIBUTION WIDTH 12.9 % (12.0-15.0); WHITE BLOOD COUNT 6.3 x10^3/uL (4.8-10.8)
[2020-03-13 05:46] LABS: CREATININE 0.8 mg/dL (0.6-1.2)
[2020-03-13] MEDS: AMPICILLIN/SULBACTAM 3 GM in SODIUM CHLORIDE 0.9% MINIBAG 100 ML IV SCH ×3 (05:54→18:50)
[2020-03-13] MEDS: PANTOPRAZOLE 40 MG VIAL IVP SCH (05:54)
[2020-03-13] MEDS: KETOROLAC 30 MG/ML VIAL IVP SCH ×3 (05:54→18:08)
--- NOTE | 2020-03-13 06:51 | PHARMACY PROGRESS NOTE ---
- Best Possible Medication History Admit Date and Time: 03/11/20 0034 Processed by: Pharmacy Medication History completed: Yes As the person ultimately responsible for medication therapy, providers are able to order a medication from an existing home medication list in [facility] via the "Reconcile Routine" prior to Confirmation of that medication by application support consultant. Such practice is discouraged except when the physician, in their clinical judgment, deems that a medical need exists for a medication without regard to previous use.
--- NOTE | 2020-03-13 08:40 | PROVIDER PROGRESS NOTE ---
Subjective - General Admit Date: 03/11/20 Procedure Date: 03/11/20 Post Op Days: 2 Procedure Performed: Lap Appy with evacuation of abscess and drain placement - Review of Systems Wound/Incisions: positive: Healing well Drain Type: Satinder Drain Output Description: Serous with a few stringy clots Approximate mls Output: minimal General: positive: No symptoms HEENT: positive: No symptoms Pulmonary: positive: No symptoms Cardiovascular: positive: No symptoms Gastrointestinal: positive: No symptoms Genitourinary: positive: No symptoms All Other Systems: positive: Reviewed and negative - Other Other Information/Narrative: A little better today. Pain is much better controlled and he is planning to walk Objective - Patient Data Vital Signs: Vital Signs x48h Temp Pulse Pulse Resp BP Pulse Ox 03/13/20 08:11 37.1 C 64 18 109/53 L 95 03/13/20 03:40 37 C 69 20 115/55 L 95 Weight: Weight 03/11/20 03/12/20 03/13/20 23:59 23:59 22:59 Weight (kg) 72.5 kg Intake & Output: Intake and Output Totals x24h 03/11/20 03/12/20 03/13/20 23:59 23:59 22:59 Intake Total 3197.667 3450.000 300 Output Total 840 3745 420 Balance 2357.667 -295.000 -120 - Lab Results Lab Results: 03/13/20 05:15 03/13/20 05:15 Other Lab Results: Lab Results x24hrs 03/13/20 03/13/20 Range/Units 05:15 05:15 WBC 6.3 (4.8-10.8) x10^3/uL RBC 4.08 L (4.70-6.10) 10^6/uL Hgb 12.6 L (14.0-18.0) g/dL Hct 37.4 L (42.0-52.0) % MCV 91.7 (80.0-94.0) fL MCH 30.9 (27.0-31.0) pg MCHC 33.7 (32.0-36.0) g/dL RDW 12.9 (12.0-15.0) % Plt Count 137 (130-450) 10^3/uL MPV 10.2 (7.4-11.4) fL Neut # (Auto) 4.3 (1.5-6.6) 10^3/uL Lymph # (Auto) 0.9 L (1.5-3.5) 10^3/uL [place] # (Auto) 1.0 (0.0-1.0) 10^3/uL Eos # (Auto) 0.1 (0.0-0.7) 10^3/uL Baso # (Auto) 0.0 (0.0-0.1) 10^3/uL Absolute Nucleated RBC 0.00 x10^3/uL Nucleated RBC % 0.0 /100WBC Sodium 136 (135-145) mmol/L Potassium 3.1 L (3.5-5.0) mmol/L Chloride 102 (101-111) mmol/L Carbon Dioxide 25 (21-32) mmol/L Anion Gap 9.0 (6-13) BUN 5 L (6-20) mg/dL Creatinine 0.8 (0.6-1.2) mg/dL Estimated GFR (MDRD) 111 (>89) Glucose 93 (70-100) mg/dL Calcium 8.0 L (8.5-10.3) mg/dL - Current Medications Current Medications: Current Medications Generic Name Dose Route Start Last Admin Trade Name Praneethq PRN Reason Stop Dose Admin Hydromorphone HCl 1 mg 03/12/20 10:48 03/13/20 08:06 Dilaudid Inj Carp IVP 1 mg Q1H PRN Administration Breakthrough Pain Acetaminophen 100 mls @ 400 mls/hr 03/11/20 08:00 03/13/20 08:05 Ofirmev IV 400 mls/hr Q6H MILVIA Administration Ampicillin Sodium/Sulbactam 100 mls @ 200 mls/hr 03/11/20 11:00 03/13/20 06:36 Sodium 3 gm/ Sodium Chloride IV Infused Q6HR MILVIA Infusion Ketorolac Tromethamine 30 mg 03/12/20 20:00 03/13/20 05:54 Toradol Inj (30mg) IVP 03/17/20 19:59 30 mg Q6HR MILVIA Administration Methocarbamol 500 mg 03/11/20 19:06 03/12/20 16:47 Robaxin PO 500 mg Q6HR PRN Administration Spasms Ondansetron HCl 4 mg 10/30/20 00:34 03/13/20 03:27 Zofran Inj IVP 4 mg Q6H PRN Administration Nausea / Vomiting Oxycodone HCl 5 mg 03/12/20 10:41 03/13/20 03:19 Roxicodone PO 5 mg Q4HR PRN Administration PAIN Pantoprazole Sodium 40 mg 03/11/20 07:00 03/13/20 05:54 Protonix IVP 40 mg QDAC MILVIA Administration Pregabalin 75 mg 03/11/20 21:00 03/12/20 21:19 Lyrica PO 75 mg BID MILVIA Administration Sodium Chloride 10 ml 03/11/20 01:00 03/13/20 08:06 Normal Saline Flush 0.9% IVP 10 ml 0100,0900,1700 MILVIA Administration Sodium Chloride 10 ml 03/11/20 01:00 03/13/20 00:55 Normal Saline Flush 0.9% IVP Not Given 0100,0900,1700 MILVIA Sodium Chloride 10 ml 03/11/20 00:34 03/12/20 20:25 Normal Saline Flush 0.9% IVP 10 ml PRN PRN Administration NEEDED PER PROVIDER ORDERS - Physical Exam Wound/Incisions: positive: Healing well General Appearance: positive: No acute distress Respiratory: positive: Chest non-tender Cardiovascular: positive: Regular rate & rhythm Abdomen: positive: Other (soft and appropriately tender with active bowel sounds. Drainage is serous and clear) Skin: positive: Color nml Neurologic/Psychiatric: positive: Oriented x3 Impression/Plan - Problem List Problem List: Continue antibiotics. Ambulate in the halls today and try to avoid narcotics if possible. Plan to remove the drain and consider discharge if he continues to improve.
[2020-03-13] MEDS: POTASSIUM CHLORIDE 10 MEQ CAPSULE PO SCH ×3 (09:05→21:17)
[2020-03-13] MEDS: PREGABALIN 25 MG CAPSULE PO SCH ×2 (09:06→21:17)
[2020-03-13] MEDS: SODIUM CHLORIDE FLUSH 0.9% 10 ML SYRINGE IVP PRN ×3 (09:07→18:46)
[2020-03-13] MEDS: metroNIDAZOLE 500 MG/100 ML 500 MG/100 ML BAG IV SCH (17:35)
[2020-03-14] MEDS: SODIUM CHLORIDE FLUSH 0.9% 10 ML SYRINGE IVP SCH ×6 (00:36→17:28)
[2020-03-14] MEDS: KETOROLAC 30 MG/ML VIAL IVP SCH ×4 (00:36→18:25)
[2020-03-14] MEDS: AMPICILLIN/SULBACTAM 3 GM in SODIUM CHLORIDE 0.9% MINIBAG 100 ML IV SCH ×4 (00:51→18:26)
[2020-03-14] MEDS: SODIUM CHLORIDE FLUSH 0.9% 10 ML SYRINGE IVP PRN ×6 (01:17→20:24)
[2020-03-14] MEDS: HYDROmorphone 1 MG/ML CARPUJECT IVP PRN ×8 (01:17→22:25)
[2020-03-14] MEDS: metroNIDAZOLE 500 MG/100 ML 500 MG/100 ML BAG IV SCH ×2 (01:21→06:35)
[2020-03-14] MEDS: oxyCODONE 5 MG TABLET PO PRN ×5 (02:07→22:15)
[2020-03-14] MEDS: ACETAMINOPHEN 1,000 MG/100 ML 100 ML IV SCH ×2 (02:37→08:11)
[2020-03-14 05:43] LABS: BUN - BLOOD UREA NITROGEN < 5 mg/dL (6-20); CARBON DIOXIDE - CO2 22 mmol/L (21-32); CHLORIDE 102 mmol/L (101-111); CREATININE 0.8 mg/dL (0.6-1.2); GLUCOSE 91 mg/dL (70-100); SODIUM 135 mmol/L (135-145)
[2020-03-14] MEDS: PANTOPRAZOLE 40 MG VIAL IVP SCH (06:06)
[2020-03-14] MEDS: POTASSIUM CHLORIDE 10 MEQ CAPSULE PO SCH ×3 (06:11→22:15)
[2020-03-14] MEDS: PREGABALIN 25 MG CAPSULE PO SCH ×2 (08:50→20:24)
[2020-03-14] MEDS: POTASSIUM CHLOR 10 MEQ/100 ML 10 MEQ/100 ML BAG IV SCH ×4 (08:51→13:17)
--- NOTE | 2020-03-14 09:26 | PROVIDER PROGRESS NOTE ---
Subjective - General Admit Date: 03/11/20 Procedure Date: 03/11/20 Post Op Days: 3 Procedure Performed: Lap Appy with evacuation of abscess and drain placement - Review of Systems Wound/Incisions: positive: Healing well Drain Type: Satinder Drain Output Description: Serous with a few stringy clots Approximate mls Output: minimal General: positive: No symptoms HEENT: positive: No symptoms Pulmonary: positive: No symptoms Cardiovascular: positive: No symptoms Gastrointestinal: positive: No symptoms Genitourinary: positive: No symptoms All Other Systems: positive: Reviewed and negative - Other Other Information/Narrative: Fever and diarrhea over night and generally feels weak today. Has walked some in the halls. Objective - Patient Data Reviewed Vital Signs: Yes Vital Signs: Vital Signs x48h Temp Pulse Resp BP Pulse Ox 03/14/20 08:34 36.7 C 83 18 113/57 L 96 03/14/20 05:00 89 20 116/46 L 97 Intake & Output: Intake and Output Totals x24h 03/13/20 03/13/20 03/14/20 00:59 23:59 23:59 Intake Total 1460 Output Total 60 Balance 1400 - Lab Results Lab Results: 03/13/20 05:15 03/14/20 05:04 Other Lab Results: Lab Results x24hrs 03/14/20 Range/Units 05:04 Sodium 135 (135-145) mmol/L Potassium 2.8 L (3.5-5.0) mmol/L Chloride 102 (101-111) mmol/L Carbon Dioxide 22 (21-32) mmol/L Anion Gap 11.0 (6-13) BUN < 5 L (6-20) mg/dL Creatinine 0.8 (0.6-1.2) mg/dL Estimated GFR (MDRD) 111 (>89) Glucose 91 (70-100) mg/dL Calcium 8.0 L (8.5-10.3) mg/dL - Current Medications Current Medications: Current Medications Generic Name Dose Route Start Last Admin Trade Name Freq PRN Reason Stop Dose Admin Hydromorphone HCl 1 mg 03/12/20 10:48 03/14/20 05:51 Dilaudid Inj Carp IVP 1 mg Q1H PRN Administration Breakthrough Pain Ampicillin Sodium/Sulbactam 100 mls @ 200 mls/hr 03/11/20 11:00 11/02/20 06:38 Sodium 3 gm/ Sodium Chloride IV Infused Q6HR MILVIA Infusion Potassium Chloride 10 meq in 100 mls @ 100 mls/hr 03/14/20 09:00 03/14/20 08:51 Potassium Chloride IV 03/14/20 12:59 100 mls/hr Q1H MILVIA Administration Ketorolac Tromethamine 30 mg 03/12/20 20:00 03/14/20 05:51 Toradol Inj (30mg) IVP 03/17/20 19:59 30 mg Q6HR MILVIA Administration Methocarbamol 500 mg 03/11/20 19:06 03/12/20 16:47 Robaxin PO 500 mg Q6HR PRN Administration Spasms Ondansetron HCl 4 mg 03/11/20 00:34 03/13/20 17:30 Zofran Inj IVP 4 mg Q6H PRN Administration Nausea / Vomiting Oxycodone HCl 5 mg 03/12/20 10:41 03/14/20 08:12 Roxicodone PO 5 mg Q4HR PRN Administration PAIN Pantoprazole Sodium 40 mg 03/11/20 07:00 03/14/20 06:06 Protonix IVP 40 mg QDAC MILVIA Administration Potassium Chloride 10 meq 03/13/20 09:00 03/14/20 06:11 Micro-K PO 10 meq TID MILVIA Administration Pregabalin 75 mg 03/11/20 21:00 03/14/20 08:50 Lyrica PO 75 mg BID MILVIA Administration Sodium Chloride 10 ml 03/11/20 01:00 03/14/20 08:53 Normal Saline Flush 0.9% IVP 10 ml 0100,0900,1700 MILVIA Administration Sodium Chloride 10 ml 03/11/20 01:00 03/14/20 09:00 Normal Saline Flush 0.9% IVP Not Given 0100,0900,1700 MILVIA Sodium Chloride 10 ml 03/11/20 00:34 03/14/20 06:06 Normal Saline Flush 0.9% IVP 10 ml PRN PRN Administration NEEDED PER PROVIDER ORDERS - Physical Exam Wound/Incisions: positive: Healing well, Other (Drain output is more voluminous and cloudy now. Consistent with purulence) General Appearance: positive: No acute distress Eyes Bilateral: positive: Normal inspection ENT: positive: ENT inspection nml Neck: positive: Nml inspection Respiratory: positive: Chest non-tender, No respiratory distress Cardiovascular: positive: Regular rate & rhythm Abdomen: positive: Other (soft, appropriately tender, active bowel sounds) Neurologic/Psychiatric: positive: Oriented x3 ABX Reporting Has patient been on IV antibiotics over the past 48 hours?: Yes Impression/Plan - Problem List Problem List: 3 days out and spiking temps through vanc. Flagyl added last PM after diarrhea started. Will check c.diff today. Hold flagyl for now. Start Vanc for enterococcus. Leave drain in place. Add probiotic
[2020-03-14] MEDS ORDERED: VANCOMYCIN INJ 1 GM in SODIUM CHLORIDE 0.9% 250 ML IV SCH (10:00)
[2020-03-14] MEDS ORDERED: VANCOMYCIN INJ 1 GM, VANCOMYCIN INJ 500 MG in SODIUM CHLORIDE 0.9% 500 ML IV SCH (10:30)
[2020-03-14] MEDS: SACCHAROMYCES BOULARDII 250 MG CAPSULE PO SCH (17:27)
[2020-03-14] MEDS ORDERED: VANCOMYCIN 1 GM VIAL ONE ×2 (20:01→20:09)
[2020-03-14] MEDS ORDERED: VANCOMYCIN 500 MG VIAL ONE (20:09)
[2020-03-14] MEDS: VANCOMYCIN INJ 1 GM, VANCOMYCIN INJ 250 MG in SODIUM CHLORIDE 0.9% 250 ML IV SCH (20:24)
[2020-03-14] MEDS: metroNIDAZOLE 250 MG TABLET PO SCH (20:38)
[2020-03-15] MEDS: SODIUM CHLORIDE FLUSH 0.9% 10 ML SYRINGE IVP SCH ×6 (00:53→17:35)
[2020-03-15] MEDS: KETOROLAC 30 MG/ML VIAL IVP SCH ×4 (00:53→17:30)
[2020-03-15] MEDS: AMPICILLIN/SULBACTAM 3 GM in SODIUM CHLORIDE 0.9% MINIBAG 100 ML IV SCH ×4 (01:03→17:39)
[2020-03-15] MEDS: VANCOMYCIN INJ 1 GM, VANCOMYCIN INJ 250 MG in SODIUM CHLORIDE 0.9% 250 ML IV SCH ×2 (02:49→12:22)
[2020-03-15] MEDS: oxyCODONE 5 MG TABLET PO PRN ×3 (02:51→17:30)
[2020-03-15] MEDS: SODIUM CHLORIDE FLUSH 0.9% 10 ML SYRINGE IVP PRN ×5 (02:55→22:09)
[2020-03-15] MEDS: metroNIDAZOLE 250 MG TABLET PO SCH ×3 (03:08→18:43)
[2020-03-15 06:02] LABS: BASOPHILS # (AUTO) 0.1 10^3/uL (0.0-0.1); BASOPHILS % (AUTO) 0.6 %; EOSINOPHILS # (AUTO) 0.3 10^3/uL (0.0-0.7); EOSINOPHILS % (AUTO) 3.9 %; HGB - HEMOGLOBIN 12.3 g/dL (14.0-18.0); LYMPHOCYTES # (AUTO) 1.6 10^3/uL (1.5-3.5); LYMPHOCYTES % (AUTO) 19.6 %; MEAN CORPUSCULAR HGB CONC 34.3 g/dL (32.0-36.0); MEAN CORPUSCULAR VOLUME 90.4 fL (80.0-94.0); MEAN PLATELET VOLUME 9.7 fL (7.4-11.4); MONOCYTES # (AUTO) 1.1 10^3/uL (0.0-1.0); MONOCYTES % (AUTO) 14.4 %; NEUTROPHILS # (AUTO) 4.7 10^3/uL (1.5-6.6); NEUTROPHILS % (AUTO) 60.1 %; PLT - PLATELET COUNT 209 10^3/uL (130-450); RED BLOOD COUNT 3.97 10^6/uL (4.70-6.10); RED CELL DISTRIBUTION WIDTH 13.3 % (12.0-15.0); WHITE BLOOD COUNT 7.9 x10^3/uL (4.8-10.8)
[2020-03-15 06:10] LABS: BUN - BLOOD UREA NITROGEN < 5 mg/dL (6-20); CALCIUM 7.8 mg/dL (8.5-10.3); CARBON DIOXIDE - CO2 25 mmol/L (21-32); CHLORIDE 104 mmol/L (101-111); CREATININE 0.8 mg/dL (0.6-1.2); GLUCOSE 107 mg/dL (70-100); SODIUM 137 mmol/L (135-145)
[2020-03-15] MEDS: ONDANSETRON 4 MG/2 ML VIAL IVP PRN ×2 (06:46→17:28)
[2020-03-15] MEDS: PANTOPRAZOLE 40 MG VIAL IVP SCH (06:46)
[2020-03-15] MEDS: HYDROmorphone 1 MG/ML CARPUJECT IVP PRN ×5 (06:47→20:35)
[2020-03-15] MEDS: POTASSIUM CHLORIDE 10 MEQ CAPSULE PO SCH ×3 (06:50→21:52)
[2020-03-15] MEDS: PREGABALIN 25 MG CAPSULE PO SCH ×2 (09:34→21:52)
[2020-03-15] MEDS: SACCHAROMYCES BOULARDII 250 MG CAPSULE PO SCH ×2 (09:34→17:29)
[2020-03-15 10:37] LABS: VANCOMYCIN,TROUGH 10.9 ug/mL (10.0-20.0)
--- NOTE | 2020-03-15 15:34 | PHARMACY PROGRESS NOTE ---
- Therapy Status Vancomycin regimen day #: 2 Therapy status: Awaiting steady state Basis for treatment: Empirical Treatment indication: Status post appendectomy with increasing white count and fever while treated with unasyn Trough goal: 15-20 Concurrent antibiotics: Unasyn - LEANN Risk Risk level for Acute Kidney Injury: Moderate Acute Kidney Injury risk factors: Goal trough >15, Total daily Vancomycin >4 grams - Monitoring and Recommendation Clinical response to treatment: I&O Previous 24 hours 03/13/20 03/14/20 03/15/20 23:59 23:59 23:59 Intake Total 3790.000 1880 Output Total 215 1620 Balance 3575.000 260 Lab Results 03/15/20 03/14/20 03/13/20 05:50 05:04 05:15 BUN < 5 L < 5 L 5 L Creatinine 0.8 0.8 0.8 Estimated GFR (MDRD) 111 111 111 03/12/20 03/11/20 03/10/20 05:16 05:40 21:00 BUN 6 7 8 Creatinine 0.8 0.9 1.0 Estimated GFR (MDRD) 111 97 86 L Vancomycin Monitoring 03/15/20 10:23 Vancomycin Trough 10.9 Fevers gone and WBC decreased Monitoring plan: Daily serum creatinine, Suggest ongoing fluid replacement Next trough due prior to maintenance dose #: 6 Next trough due (date/time): 02/15/2020 at 1100 Areas for additional monitoring: IV to PO when appropriate, Therapy de- escalation based on culture results Pharmacy recommendation: Increase dose
[2020-03-15] MEDS: ACETAMINOPHEN 325 MG TABLET PO PRN (17:29)
[2020-03-15] MEDS: VANCOMYCIN INJ 1 GM, VANCOMYCIN INJ 500 MG in SODIUM CHLORIDE 0.9% 500 ML IV SCH (18:46)
--- NOTE | 2020-03-15 19:57 | PROVIDER PROGRESS NOTE ---
Subjective - General Admit Date: 03/11/20 Procedure Date: 03/11/20 Post Op Days: 4 Procedure Performed: Lap Appy with evacuation of abscess and drain placement - Review of Systems Wound/Incisions: positive: Healing well, Other (Drain output is more voluminous and cloudy now. Consistent with purulence) Drain Type: Satinder Drain Output Description: Serous with a few stringy clots Approximate mls Output: minimal General: positive: No symptoms HEENT: positive: No symptoms Pulmonary: positive: No symptoms Cardiovascular: positive: No symptoms Gastrointestinal: positive: No symptoms Genitourinary: positive: No symptoms All Other Systems: positive: Reviewed and negative Objective - Patient Data Reviewed Vital Signs: Yes Vital Signs: Vital Signs x48h Temp Pulse Resp BP Pulse Ox 03/15/20 17:00 36.8 C 68 20 122/64 100 03/15/20 12:50 36.7 C 69 20 104/44 L 97 Intake & Output: Intake and Output Totals x24h 03/13/20 03/14/20 03/15/20 23:59 23:59 23:59 Intake Total 3790.000 3260 Output Total 215 1890 Balance 3575.000 1370 - Lab Results Lab Results: 03/15/20 05:50 03/15/20 05:50 Other Lab Results: Lab Results x24hrs 03/15/20 03/15/20 03/15/20 Range/Units 10:23 05:50 05:50 WBC 7.9 (4.8-10.8) x10^3/uL RBC 3.97 L (4.70-6.10) 10^6/uL Hgb 12.3 L (14.0-18.0) g/dL Hct 35.9 L (42.0-52.0) % MCV 90.4 (80.0-94.0) fL MCH 31.0 (27.0-31.0) pg MCHC 34.3 (32.0-36.0) g/dL RDW 13.3 (12.0-15.0) % Plt Count 209 (130-450) 10^3/uL MPV 9.7 (7.4-11.4) fL Neut # (Auto) 4.7 (1.5-6.6) 10^3/uL Lymph # (Auto) 1.6 (1.5-3.5) 10^3/uL [place] # (Auto) 1.1 H (0.0-1.0) 10^3/uL Eos # (Auto) 0.3 (0.0-0.7) 10^3/uL Baso # (Auto) 0.1 (0.0-0.1) 10^3/uL Absolute Nucleated RBC 0.00 x10^3/uL Nucleated RBC % 0.0 /100WBC Sodium 137 (135-145) mmol/L Potassium 3.3 L (3.5-5.0) mmol/L Chloride 104 (101-111) mmol/L Carbon Dioxide 25 (21-32) mmol/L Anion Gap 8.0 (6-13) BUN < 5 L (6-20) mg/dL Creatinine 0.8 (0.6-1.2) mg/dL Estimated GFR (MDRD) 111 (>89) Glucose 107 H (70-100) mg/dL Calcium 7.8 L (8.5-10.3) mg/dL Last Dose Date 03/14/20 Last Dose Time 20:10 Vancomycin Trough 10.9 (10.0-20.0) ug/mL - Current Medications Current Medications: Current Medications Generic Name Dose Route Start Last Admin Trade Name Freq PRN Reason Stop Dose Admin Acetaminophen 650 mg 03/14/20 09:16 03/15/20 17:29 Tylenol PO 650 mg Q4HR PRN Administration Pain or Fever > 38C (100.4F) Hydromorphone HCl 1 mg 03/12/20 10:48 03/15/20 17:28 Dilaudid Inj Carp IVP 1 mg Q1H PRN Administration Breakthrough Pain Ampicillin Sodium/Sulbactam 100 mls @ 200 mls/hr 03/11/20 11:00 03/15/20 18:47 Sodium 3 gm/ Sodium Chloride IV Infused Q6HR MILVIA Infusion Vancomycin HCl 1 gm/ 500 mls @ 250 mls/hr 03/15/20 20:00 03/15/20 18:46 Vancomycin HCl 500 mg/ Sodium IV 250 mls/hr Chloride Q8H MILVIA Administration Ketorolac Tromethamine 30 mg 03/12/20 20:00 03/15/20 17:30 Toradol Inj (30mg) IVP 03/17/20 19:59 30 mg Q6HR MILVIA Administration Methocarbamol 500 mg 03/11/20 19:06 03/12/20 16:47 Robaxin PO 500 mg Q6HR PRN Administration Spasms Metronidazole 500 mg 03/14/20 20:00 03/15/20 18:43 Flagyl PO 500 mg Q8H MILVIA Administration Ondansetron HCl 4 mg 03/11/20 00:34 03/15/20 17:28 Zofran Inj IVP 4 mg Q6H PRN Administration Nausea / Vomiting Oxycodone HCl 5 mg 03/12/20 10:41 03/15/20 17:30 Roxicodone PO 5 mg Q4HR PRN Administration PAIN Pantoprazole Sodium 40 mg 03/11/20 07:00 03/15/20 06:46 Protonix IVP 40 mg QDAC MILVIA Administration Potassium Chloride 10 meq 03/13/20 09:00 03/15/20 11:43 Micro-K PO 10 meq TID MILVIA Administration Pregabalin 75 mg 03/11/20 21:00 03/15/20 09:34 Lyrica PO 75 mg BID MILVIA Administration Saccharomyces Boulardii 500 mg 03/14/20 17:00 03/15/20 17:29 Florastor PO 500 mg BIDWM MILVIA Administration Sodium Chloride 10 ml 03/11/20 01:00 03/15/20 17:35 Normal Saline Flush 0.9% IVP 10 ml 0100,0900,1700 MILVIA Administration Sodium Chloride 10 ml 03/11/20 01:00 03/15/20 17:35 Normal Saline Flush 0.9% IVP 10 ml 0100,0900,1700 MILVIA Administration Sodium Chloride 10 ml 03/11/20 00:34 03/15/20 12:27 Normal Saline Flush 0.9% IVP 10 ml PRN PRN Administration NEEDED PER PROVIDER ORDERS - Physical Exam Wound/Incisions: positive: Healing well General Appearance: positive: No acute distress, Alert Eyes Bilateral: positive: Normal inspection, PERRL, EOMI ENT: positive: ENT inspection nml Neck: positive: Nml inspection, Thyroid nml Respiratory: positive: Chest non-tender Cardiovascular: positive: Regular rate & rhythm Abdomen: positive: Other (Appropriately tender to palpation. Drainage is clearing and is now much more serous.) Skin: positive: Color nml Extremities: positive: Non-tender ABX Reporting Has patient been on IV antibiotics over the past 48 hours?: Yes Impression/Plan - Problem List Problem List: Perforated appendicitis with abscess. Now with c.diff colitis. Afebrile since starting Vancomycin and drainage is clearing. Diarrhea greatly improved since starting Flagyl po. Struggling a bit with nausea but tolerable with Zofran. Overall improving Check potassium again in the AM. Continue Unasyn, Vanc and Flagyl
[2020-03-16] MEDS: oxyCODONE 5 MG TABLET PO PRN ×4 (00:17→17:23)
[2020-03-16] MEDS: KETOROLAC 30 MG/ML VIAL IVP SCH ×4 (00:17→17:31)
[2020-03-16] MEDS: SODIUM CHLORIDE FLUSH 0.9% 10 ML SYRINGE IVP SCH ×6 (00:17→18:47)
[2020-03-16] MEDS: AMPICILLIN/SULBACTAM 3 GM in SODIUM CHLORIDE 0.9% MINIBAG 100 ML IV SCH ×3 (00:18→11:21)
[2020-03-16] MEDS: HYDROmorphone 1 MG/ML CARPUJECT IVP PRN ×6 (00:19→21:41)
[2020-03-16] MEDS: ONDANSETRON 4 MG/2 ML VIAL IVP PRN ×3 (00:20→17:32)
[2020-03-16] MEDS: metroNIDAZOLE 250 MG TABLET PO SCH ×2 (03:42→11:18)
[2020-03-16] MEDS: VANCOMYCIN INJ 1 GM, VANCOMYCIN INJ 500 MG in SODIUM CHLORIDE 0.9% 500 ML IV SCH ×2 (03:42→11:53)
[2020-03-16] MEDS: POTASSIUM CHLORIDE 10 MEQ CAPSULE PO SCH ×3 (05:55→21:38)
[2020-03-16] MEDS: ACETAMINOPHEN 325 MG TABLET PO PRN ×2 (05:55→17:23)
[2020-03-16] MEDS: PANTOPRAZOLE 40 MG VIAL IVP SCH (05:56)
[2020-03-16] MEDS: SACCHAROMYCES BOULARDII 250 MG CAPSULE PO SCH ×2 (08:11→17:22)
[2020-03-16] MEDS: PREGABALIN 25 MG CAPSULE PO SCH ×2 (08:12→21:38)
[2020-03-16 14:40] LABS: BUN - BLOOD UREA NITROGEN < 5 mg/dL (6-20); CALCIUM 7.6 mg/dL (8.5-10.3); CARBON DIOXIDE - CO2 26 mmol/L (21-32); CHLORIDE 104 mmol/L (101-111); CREATININE 0.9 mg/dL (0.6-1.2); GLUCOSE 102 mg/dL (70-100); SODIUM 138 mmol/L (135-145)
--- NOTE | 2020-03-16 18:15 | PROVIDER PROGRESS NOTE ---
Subjective - General Admit Date: 03/11/20 Procedure Date: 03/11/20 Post Op Days: 5 Procedure Performed: Lap Appy with evacuation of abscess and drain placement - Review of Systems Wound/Incisions: positive: Healing well Drain Type: Satinder Drain Output Description: Serous with a few stringy clots Approximate mls Output: minimal General: positive: No symptoms HEENT: positive: No symptoms Pulmonary: positive: No symptoms Cardiovascular: positive: No symptoms Gastrointestinal: positive: No symptoms Genitourinary: positive: No symptoms All Other Systems: positive: Reviewed and negative - Other Other Information/Narrative: Feeling a little stronger but continues to struggle with nausea likely due to Flagyl. Diarrhea has essentially stopped. He has been afebrile since starting Vanc IV Objective - Patient Data Vital Signs: Vital Signs x48h Temp Pulse Resp BP BP Pulse Ox 03/16/20 15:47 36.8 C 59 L 16 127/61 98 03/16/20 12:05 36.8 C 54 L 16 115/57 L 96 Intake & Output: Intake and Output Totals x24h 03/14/20 03/15/20 03/16/20 23:59 23:59 23:59 Intake Total 3790.000 3760 1990 Output Total 215 2160 1410 Balance 3575.000 1600 580 - Lab Results Lab Results: 03/15/20 05:50 03/16/20 14:15 Other Lab Results: Lab Results x24hrs 03/16/20 Range/Units 14:15 Sodium 138 (135-145) mmol/L Potassium 3.1 L (3.5-5.0) mmol/L Chloride 104 (101-111) mmol/L Carbon Dioxide 26 (21-32) mmol/L Anion Gap 8.0 (6-13) BUN < 5 L (6-20) mg/dL Creatinine 0.9 (0.6-1.2) mg/dL Estimated GFR (MDRD) 97 (>89) Glucose 102 H (70-100) mg/dL Calcium 7.6 L (8.5-10.3) mg/dL - Current Medications Current Medications: Current Medications Generic Name Dose Route Start Last Admin Trade Name Freq PRN Reason Stop Dose Admin Acetaminophen 650 mg 03/14/20 09:16 03/16/20 17:23 Tylenol PO 650 mg Q4HR PRN Administration Pain or Fever > 38C (100.4F) Calamine 1 applic 03/11/20 04:13 03/16/20 16:53 Calamine Lotion TOP 1 applic PRN PRN Administration SKIN CARE Hydromorphone HCl 1 mg 03/12/20 10:48 03/16/20 17:40 Dilaudid Inj Carp IVP 1 mg Q1H PRN Administration Breakthrough Pain Ketorolac Tromethamine 30 mg 03/12/20 20:00 03/16/20 17:31 Toradol Inj (30mg) IVP 03/17/20 19:59 30 mg Q6HR MILVIA Administration Methocarbamol 500 mg 03/11/20 19:06 03/12/20 16:47 Robaxin PO 500 mg Q6HR PRN Administration Spasms Ondansetron HCl 4 mg 03/11/20 00:34 03/16/20 17:32 Zofran Inj IVP 4 mg Q6H PRN Administration Nausea / Vomiting Oxycodone HCl 5 mg 03/12/20 10:41 03/16/20 17:23 Roxicodone PO 5 mg Q4HR PRN Administration PAIN Pantoprazole Sodium 40 mg 03/11/20 07:00 03/16/20 05:56 Protonix IVP 40 mg QDAC MILVIA Administration Potassium Chloride 10 meq 03/13/20 09:00 03/16/20 14:03 Micro-K PO 10 meq TID MILVIA Administration Pregabalin 75 mg 03/11/20 21:00 03/16/20 08:12 Lyrica PO 75 mg BID MILVIA Administration Saccharomyces Boulardii 500 mg 03/14/20 17:00 03/16/20 17:22 Florastor PO 500 mg BIDWM MILVIA Administration Sodium Chloride 10 ml 03/11/20 01:00 03/16/20 17:27 Normal Saline Flush 0.9% IVP 10 ml 0100,0900,1700 MILVIA Administration Sodium Chloride 10 ml 03/11/20 01:00 03/16/20 11:22 Normal Saline Flush 0.9% IVP Not Given 0100,0900,1700 MILVIA Sodium Chloride 10 ml 03/11/20 00:34 03/15/20 22:09 Normal Saline Flush 0.9% IVP 10 ml PRN PRN Administration NEEDED PER PROVIDER ORDERS - Physical Exam Wound/Incisions: positive: Healing well Comments/Other: Wounds are clean and dry. Satinder drainage has greatly decreased and is clear. Abdomen is soft with active bowel sounds Lungs are clear ABX Reporting Has patient been on IV antibiotics over the past 48 hours?: Yes Impression/Plan - Problem List Problem List: 1. Stop Unasyn and IV Vanc and PO Flagyl 2. Start PO vanc 3. If he remains afebrile, will consider removing the drain and discharge tomorrow evening.
[2020-03-16] MEDS: VANCOMYCIN 125 MG CAPSULE PO SCH (21:38)
[2020-03-17] MEDS: KETOROLAC 30 MG/ML VIAL IVP SCH ×3 (00:43→11:41)
[2020-03-17] MEDS: HYDROmorphone 1 MG/ML CARPUJECT IVP PRN ×4 (00:43→13:47)
[2020-03-17] MEDS: ONDANSETRON 4 MG/2 ML VIAL IVP PRN ×2 (00:43→05:43)
[2020-03-17] MEDS: SODIUM CHLORIDE FLUSH 0.9% 10 ML SYRINGE IVP PRN (00:44)
[2020-03-17] MEDS: SODIUM CHLORIDE FLUSH 0.9% 10 ML SYRINGE IVP SCH ×4 (00:44→09:12)
[2020-03-17] MEDS: POTASSIUM CHLORIDE 10 MEQ CAPSULE PO SCH ×2 (05:43→13:47)
[2020-03-17] MEDS: ACETAMINOPHEN 325 MG TABLET PO PRN ×3 (05:43→14:32)
[2020-03-17] MEDS: oxyCODONE 5 MG TABLET PO PRN ×3 (05:43→14:32)
[2020-03-17] MEDS: PANTOPRAZOLE 40 MG VIAL IVP SCH (05:43)
[2020-03-17] MEDS: SACCHAROMYCES BOULARDII 250 MG CAPSULE PO SCH (07:54)
[2020-03-17] MEDS: VANCOMYCIN 125 MG CAPSULE PO SCH ×2 (09:04→11:41)
[2020-03-17 09:05] LABS: BASOPHILS % (AUTO) 0.9 %; EOSINOPHILS % (AUTO) 5.3 %; LYMPHOCYTES % (AUTO) 19.8 %; MEAN CORPUSCULAR HEMOGLOBIN 31.3 pg (27.0-31.0); MEAN PLATELET VOLUME 9.1 fL (7.4-11.4); MONOCYTES % (AUTO) 7.8 %; NEUTROPHILS % (AUTO) 64.5 %; PLT - PLATELET COUNT 347 10^3/uL (130-450); RED BLOOD COUNT 4.48 10^6/uL (4.70-6.10); RED CELL DISTRIBUTION WIDTH 13.6 % (12.0-15.0)
[2020-03-17 09:08] LABS: ABNORMAL LYMPHS % (MANUAL) 0 %
[2020-03-17] MEDS: PREGABALIN 25 MG CAPSULE PO SCH (09:11)
[2020-03-17 09:12] LABS: BUN - BLOOD UREA NITROGEN < 5 mg/dL (6-20); CALCIUM 8.1 mg/dL (8.5-10.3); CARBON DIOXIDE - CO2 28 mmol/L (21-32); CHLORIDE 102 mmol/L (101-111); CREATININE 0.8 mg/dL (0.6-1.2); GLUCOSE 107 mg/dL (70-100); SODIUM 140 mmol/L (135-145)
[2020-03-17 09:33] LABS: BAND NEUTROPHILS % (MANUAL) 2 %; BASOPHILS # (MANUAL) 0.1 10^3/uL (0-0.1); BASOPHILS % (MANUAL) 2 %; EOSINOPHILS # (MANUAL) 0.1 10^3/uL (0-0.7); LYMPHOCYTES # (MANUAL) 2.6 10^3/uL (1.5-3.5); LYMPHOCYTES % (MANUAL) 11 %; MONOCYTES # (MANUAL) 0.3 10^3/uL (0.0-1.0); MYELOCYTES % (MANUAL) 1 %
[2020-03-17 09:34] LABS: DIFFERENTIAL COMMENT MANUAL DIFFERENTIAL
--- NOTE | 2020-03-17 14:03 | Discharge Plan ---
Discharge Plan Problem Reviewed?: Yes Disposition: Home, Self Care Condition: Stable Prescriptions: oxyCODONE [Roxicodone] 5 mg PO Q4HR PRN #30 tablet PRN Reason: Pain methocarbamoL [Robaxin] 500 mg PO Q6HR PRN #30 tablet PRN Reason: Spasms Vancomycin [Vancocin] 125 mg PO QID #40 capsule Ondansetron Odt [Zofran Odt] 4 mg TL Q6H PRN #30 tablet PRN Reason: Nausea / Vomiting Diet: Regular Activity Restrictions: 10 pound lifting restrict Shower Restrictions: No Instruction Topics: Methocarbamol tablets, Ketorolac injection, Ampicillin Sulbactam injection, Hydromorphone injection, Pregabalin capsules, Oxycodone tablets or capsules, Clostridium Difficile Infec No Smoking: If you smoke, Please STOP! Call for help.
--- NOTE | 2020-03-17 14:04 | DISCHARGE SUMMARY ---
"Discharge Summary Admit Date: 04/10/20 Discharge Date: 03/17/20 Discharging Provider: Elham Code Status: Attempt Resuscitation Condition at Discharge: Stable Discharge Disposition: 01 Home, Self Care - DIAGNOSES Admission Diagnoses: Appendicitis Discharge Diagnoses with Status of Each Condition: Perforated appendicitis with abscess - improved - HPI History of Present Illness: Peter presented to the ED on the date of admission complaining of right lower quadrant pain for 2-3 days. He was seen and evaluated in the ED and found to have acute appendicitis. I was consulted for definitive management. - CONSULTS | PROCEDURES Consultations: None Procedures: Laparoscopy with appendectomy and evacuation of abscess and drain placement - HOSPITAL COURSE Hospital Course: Peter was taken to the operating room for an uneventful procedure that revealed a large right lower quadrant abscess and perforated appendix. He was continued on antibiotics and fevers resolved on day 2. His drain output increased in volume and became cloudy on day 4. He developed profuse diarrhea on day 4. Stool was positive for c.diff and he was started on oral Flagyl. Vancomycin was added for enterococcus coverage. The diarrhea stopped and he was afebrile thereafter. Today the drainage is clear and labs are reassurring. The drain is removed and he is discharged to his home on oral Vancomycin for continued treatment of c. diff. - ALLERGIES Allergies/Adverse Reactions: Allergies Allergy/AdvReac Type Severity Reaction Status Date / Time No Known Drug Allergies Allergy Verified 03/10/20 20:22 - MEDICATIONS Home Medications: Ambulatory Orders Medication Instructions Recorded Confirmed Ondansetron Odt [Zofran Odt] 4 mg TL Q6H PRN #30 tablet 03/17/20 Vancomycin [Vancocin] 125 mg PO QID #40 capsule 03/17/20 methocarbamoL [Robaxin] 500 mg PO Q6HR PRN #30 tablet 03/17/20 oxyCODONE [Roxicodone] 5 mg PO Q4HR PRN #30 tablet 03/17/20 - PHYSICAL EXAM AT DISCHARGE General Appearance: positive: No acute distress, Alert Eyes Bilateral: positive: Normal inspection, PERRL, EOMI ENT: positive: ENT inspection nml, Pharynx nml, No signs of dehydration Neck: positive: Nml inspection, Thyroid nml, No JVD Respiratory: positive: Chest non-tender, No respiratory distress, Breath sounds nml Cardiovascular: positive: Regular rate & rhythm, No murmur, No gallop Peripheral Pulses: positive: 2+ Abdomen: positive: Nml bowel sounds, Tenderness (Appropriately tender to palpation) Rectal: positive: Non-tender Back: positive: Nml inspection Skin: positive: Color nml, No rash Extremities: positive: Non-tender, Full ROM, Nml appearance Neurologic/Psychiatric: positive: Oriented x3 - LABS Result Diagrams: 03/17/20 08:57 03/17/20 08:57 - QUALITY (Female Hip Fx Only) Was patient sent home on osteoporosis medication?: No - FOLLOW UP [facility] - TIME SPENT Time Spent in Discharge (Minutes): 25"
[2020-03-17 15:37] VITALS: BP 117/58
== END 2020-03-17 16:11 | disposition home or self-care (01) | DRG 339 ==
LOC: ED 20:18 → SDS 23:06 → MS2 03-11 00:34
PROVIDERS: ADMIT Surgery; ATTEND Surgery
PROC: 0DTJ4ZZ Resection of Appendix, Percutaneous Endoscopic Approach (ICD-10-PCS; principal; 2020-03-11 16:00)
DX: K35.33 Acute appendicitis with perforation, localized peritonitis, and gangrene, with abscess (principal); A04.72 Enterocolitis due to Clostridium difficile, not specified as recurrent; E80.5 Crigler-Najjar syndrome; Z90.49 Acquired absence of other specified parts of digestive tract; Z87.891 Personal history of nicotine dependence
CPT/HCPCS: 36415; 74177; 80048; 80053; 80202; 83690; 85025; 87493; 96365; 96375; 96376; 99284; 99285; A9270; J0131; J1170; J3370; J7120; J8499; Q9967

== ENCOUNTER 2020-07-23 15:57 | Emergency (ER) | payer OTHER ==
[2020-07-23] MEDS ORDERED: SODIUM CHLORIDE 0.9% 1,000 ML IV STA ×2 (16:57)
[2020-07-23] MEDS ORDERED: PROMETHAZINE INJ 25 MG in SODIUM CHLORIDE 0.9% 50 ML IV STA (16:57)
[2020-07-23] MEDS ORDERED: HYDROmorphone 1 MG/ML CARPUJECT IVP STA (16:57)
[2020-07-23 16:58] LABS: BASOPHILS % (AUTO) 0.2 %; EOSINOPHILS % (AUTO) 0.1 %; HCT - HEMATOCRIT 51.7 % (42.0-52.0); HGB - HEMOGLOBIN 17.9 g/dL (14.0-18.0); LYMPHOCYTES # (AUTO) 0.4 10^3/uL (1.5-3.5); LYMPHOCYTES % (AUTO) 2.6 %; MEAN CORPUSCULAR HEMOGLOBIN 31.6 pg (27.0-31.0); MEAN CORPUSCULAR HGB CONC 34.6 g/dL (32.0-36.0); MEAN CORPUSCULAR VOLUME 91.3 fL (80.0-94.0); MEAN PLATELET VOLUME 9.3 fL (7.4-11.4); NEUTROPHILS # (AUTO) 12.2 10^3/uL (1.5-6.6); NEUTROPHILS % (AUTO) 89.8 %; PLT - PLATELET COUNT 236 10^3/uL (130-450); RED BLOOD COUNT 5.66 10^6/uL (4.70-6.10); RED CELL DISTRIBUTION WIDTH 12.9 % (12.0-15.0); WHITE BLOOD COUNT 13.6 x10^3/uL (4.8-10.8)
[2020-07-23 17:10] LABS: ALBUMIN 4.9 g/dL (3.2-5.5); ALBUMIN/GLOBULIN RATIO 1.5 (1.0-2.2); BILIRUBIN,TOTAL 2.1 mg/dL (0.2-1.0); CALCIUM 9.8 mg/dL (8.5-10.3); CREATININE 0.9 mg/dL (0.6-1.2); POTASSIUM 4.1 mmol/L (3.5-5.0); TOTAL PROTEIN 8.1 g/dL (6.7-8.2)
[2020-07-23] MEDS ORDERED: PROMETHAZINE 25 MG/1 ML VIAL ONE (17:13)
[2020-07-23] MEDS ORDERED: IOVERSOL 320 100 ML VIAL IVP ONE ×2 (17:50→18:39)
--- NOTE | 2020-07-23 18:21 | ED Physician Documentation ---
PD HPI ABD PAIN - Stated complaint Stated Complaint: ABD PX - Chief complaint Chief Complaint: Abd Pain - History obtained from History obtained from: Patient - History of Present Illness Timing - onset: Today Timing - details: Abrupt onset Pain level max: 9 Pain level now: 9 Quality: Aching, Pain Location: All over / everywhere Radiation: No: Chest, , Lower back, Left flank, Left shoulder, Right flank, Right shoulder, Upper back Improved by: Vomiting Worsened by: Eating Associated symptoms: Nausea, Vomiting, Diarrhea. No: Fever, Hematemesis, Constipation, Melena, Hematochezia, Dysuria, Hematuria, Chest pain - Additional information Additional information: Patient is a 35-year-old male with abdominal pain, nausea, vomiting today. States started abruptly this morning and is continued throughout the day. Describes the pain is aching and all over. Nonradiating. Nothing makes it better or worse. Review of Systems Constitutional: denies: Fever, Chills Nose: denies: Rhinorrhea / runny nose, Congestion Cardiac: denies: Chest pain / pressure, Palpitations Respiratory: denies: Dyspnea, Cough GI: reports: Abdominal Pain, Nausea, Vomiting, Diarrhea. denies: Hematemesis, Bloody / black stool Skin: denies: Rash Musculoskeletal: denies: Neck pain, Back pain Neurologic: denies: Headache PD PAST MEDICAL HISTORY - Past Medical History Past Medical History: No Cardiovascular: None Respiratory: None Neuro: None Endocrine/Autoimmune: None, Other GI: Other : None Musculoskeletal: None Derm: None - Past Surgical History Past Surgical History: Yes General: Cholecystectomy, Appendectomy Ortho: Other - Present Medications Home Medications: Ambulatory Orders Medication Instructions Recorded Confirmed Ondansetron Odt [Zofran] 4 mg TL Q6H PRN #10 tablet 07/23/20 Promethazine [Phenergan] 25 mg PO Q6H PRN #10 tab 07/23/20 - Allergies Allergies/Adverse Reactions: Allergies Allergy/AdvReac Type Severity Reaction Status Date / Time No Known Drug Allergies Allergy Verified 07/23/20 16:02 - Social History Does the pt smoke?: No Smoking Status: Never smoker Does the pt drink ETOH?: No Does the pt have substance abuse?: No - Immunizations Immunizations are current?: Yes Immunizations: TDAP current <10years - POLST Patient has POLST: No PD ED PE NORMAL - Vitals Vital signs reviewed: Yes - General General: Alert and oriented X 3, No acute distress, Well developed/nourished - HEENT HEENT: PERRL, Moist mucous membranes - Neck Neck: Supple, no meningeal sign - Cardiac Cardiac: RRR, Strong equal pulses - Respiratory Respiratory: No respiratory distress, Clear bilaterally - Abdomen Abdomen: Soft, Non distended, Other (Mild diffuse tenderness palpation. No peritoneal signs) - Back Back: No CVA TTP, No spinal TTP - Derm Derm: Warm and dry, No rash - Extremities Extremities: No edema - Neuro Neuro: Alert and oriented X 3 - Psych Psych: Normal mood, Normal affect Results - Vitals Vitals: Vital Signs - 24 hr 07/23/20 07/23/20 07/23/20 16:01 17:10 17:40 Temperature 36.5 C Heart Rate 93 93 97 Respiratory 18 18 18 Rate Blood Pressure 136/74 H 129/68 126/70 O2 Saturation 100 100 96 07/23/20 07/23/20 19:00 19:43 Temperature Heart Rate 100 95 Respiratory 16 18 Rate Blood Pressure 115/72 121/93 H O2 Saturation 97 98 Oxygen O2 Source Room air - Labs Labs: Laboratory Tests 07/23/20 07/23/20 16:54 16:54 WBC 13.6 H RBC 5.66 Hgb 17.9 Hct 51.7 MCV 91.3 MCH 31.6 H MCHC 34.6 RDW 12.9 Plt Count 236 MPV 9.3 Neut # (Auto) 12.2 H Lymph # (Auto) 0.4 L [place] # (Auto) 1.0 Eos # (Auto) 0.0 Baso # (Auto) 0.0 Absolute Nucleated RBC 0.00 Nucleated RBC % 0.0 Sodium 140 Potassium 4.1 Chloride 103 Carbon Dioxide 25 Anion Gap 12.0 BUN 12 Creatinine 0.9 Estimated GFR (MDRD) 97 Glucose 136 H Calcium 9.8 Total Bilirubin 2.1 H AST 22 ALT 27 Alkaline Phosphatase 43 Total Protein 8.1 Albumin 4.9 Globulin 3.2 Albumin/Globulin Ratio 1.5 Lipase 19 L - Rads (name of study) cT abdomen and pelvis Radiology: Prelim report reviewed, EMP read contemporaneously, See rad report PD MEDICAL DECISION MAKING - ED course Complexity details: reviewed results, re-evaluated patient, considered differential, d/w patient ED course: Patient is well-appearing, nontoxic. Afebrile. Nausea and vomiting resolved with droperidol. Pain improved. Tolerating p.o. without difficulty. Feels better after IV fluids. CT is consistent with a viral gastroenteritis. Pulmonary nodule does not need any follow-up according to The Fleischner Criteria for solid lung nodule follow-up. We will continue supportive care and have him follow-up with his doctor for further care. Patient counseled regarding signs and symptoms for which I believe and urgent re-evaluation would be necessary. Patient with good understanding of and agreement to plan and is comfortable going home at this time This document was made in part using voice recognition software. While efforts are made to proofread this document, sound alike and grammatical errors may occur. 1. Fluid-filled loops of small bowel in a nonobstructive pattern. This could be assistance representative of enteritis and clinical correlation is recommended. 2. 2 mm left lower lobe nodule, overall nonspecific without priors available for comparison. Recommend interval follow-up as below. Departure - Departure Disposition: 01 Home, Self Care Clinical Impression: Viral gastroenteritis Condition: Good Instructions: ED Gastroenteritis Viral Follow-Up: your,doctor in 1 week [Other] Prescriptions: Promethazine [Phenergan] 25 mg PO Q6H PRN #10 tab PRN Reason: Nausea / Vomiting Ondansetron Odt [Zofran] 4 mg TL Q6H PRN #10 tablet PRN Reason: Nausea / Vomiting Comments: Plenty of fluids and rest. Return if you worsen. This should improve over the next 24 hours. Discharge Date/Time: 07/23/20 19:53
[2020-07-23] MEDS ORDERED: DROPERIDOL 5 MG/2 ML VIAL IVP STA (18:52)
--- NOTE | 2020-07-23 19:11 | CT Report ---
PROCEDURE: Abdomen/Pelvis W INDICATIONS: diffuse abd pain, vomiting CONTRAST: IV CONTRAST: Optiray 320 ml: 100 PO CONTRAST: *NO PO CONTRAST TECHNIQUE: After the administration of IV contrast, 5 mm thick sections acquired from the diaphragms to the symp hysis. 5 mm thick coronal and sagittal reformats were acquired. For radiation dose reduction, the f ollowing was used: automated exposure control, adjustment of mA and/or kV according to patient size. COMPARISON: CT abdomen pelvis 03/10/2020 FINDINGS: Image quality: Excellent. ABDOMEN: Lung bases: 2 mm nodule is present in the left base on series 4 image 3. This area was not included o n [id number] of prior exam for comparison. Heart size is normal. Solid organs: Liver is enlarged. The spleen is mildly enlarged. No focal lesions are identified. Ga llbladder has been removed Biliary system is non dilated. Pancreas enhances normally. No adrenal n odules. Kidneys demonstrate normal size and enhancement, without hydronephrosis. Peritoneum and bowel: Bowel loops are nonobstructive. There is fluid-filled loops of small bowel in overall nonobstructive pattern. Clips are present within the right lower quadrant presumably secondar y to cholecystectomy.. No free fluid or air. Nodes and vessels: No retroperitoneal or mesenteric adenopathy by size criteria. Aorta and inferior vena cava are normal in size. Miscellaneous: No ventral hernias. PELVIS: Genitourinary: Bladder wall thickness is normal. Miscellaneous: No inguinal hernias or adenopathy. Bones: No suspicious bony lesions. No vertebral body compression fractures. IMPRESSION: 1. Fluid-filled loops of small bowel in a nonobstructive pattern. This could be leather goods sales representative of ent eritis and clinical correlation is recommended. 2. 2 mm left lower lobe nodule, overall nonspecific without priors available for comparison. Recommen d interval follow-up as below. Fleischner Society criteria for SOLID lung nodule followup. Nodule size (mm) * <6 * Low-risk patient: No follow-up needed * High-risk patient: Optional CT at 12 months; if no change, no further follow-up * 6-8 * Low-risk patient: Initial follow-up CT at 6-12 months, then optional CT at 18-24 months. * High-risk patient: Initial follow-up CT at CT at 6-[address] 18-24 months. * >8 single nodule * Low-risk patient: CT, PET or biopsy at 3 months. * High-risk patient: Same as for low-risk pts. * >8 multiple nodules * Low-risk patient: CT at 3-6 months, then optional CT at 18-24 months * High-risk patient: CT at 3-6 months, then CT at 18-24 months Reviewed by: Kimber Veronica MD on 07/23/2020 7:09 PM PST Approved by: Kimber Veronica MD on 07/23/2020 7:09 PM PST Station ID: [id number]
[2020-07-23] MEDS ORDERED: ONDANSETRON ODT 4 MG Prepack 2 TL PRN (19:30)
[2020-07-23 19:44] VITALS: BP 121/93
== END 2020-07-23 19:53 | disposition home or self-care (01) ==
LOC: ED 15:57
DX: A08.4 Viral intestinal infection, unspecified (principal); R91.1 Solitary pulmonary nodule
CPT/HCPCS: 36415; 74177; 80053; 83690; 85025; 96374; 96375; 99284; J1170; J7040; Q9967

== ENCOUNTER 2022-03-04 14:45 | Emergency (ER) | payer OTHER ==
--- NOTE | 2022-03-04 15:07 | ED Physician Documentation ---
PD HPI UPPER EXT INJURY - Stated complaint Stated Complaint: L HAND LAC - Chief complaint Chief Complaint: Laceration - History obtained from History obtained from: Patient - History of Present Illness Location: Left (He is UTD on tetanus. He is R handed. He was cut by a surfboard fin while surfing just [employer] to L palm.) Review of Systems Constitutional: reports: Reviewed and negative Cardiac: reports: Reviewed and negative Respiratory: reports: Reviewed and negative PD PAST MEDICAL HISTORY - Past Medical History Past Medical History: Yes Cardiovascular: None Respiratory: None Neuro: None Endocrine/Autoimmune: None, Other GI: Other : None Musculoskeletal: None Derm: None Other Past Medical History: Creglan najaar syndrome - Past Surgical History Past Surgical History: Yes General: Cholecystectomy, Appendectomy Ortho: Other - Allergies Allergies/Adverse Reactions: Allergies Allergy/AdvReac Type Severity Reaction Status Date / Time No Known Drug Allergies Allergy Verified 03/04/22 15:00 - Social History Does the pt smoke?: No Smoking Status: Never smoker Does the pt drink ETOH?: No Does the pt have substance abuse?: No - Immunizations Immunizations are current?: Yes Immunizations: TDAP current <10years - POLST Patient has POLST: No PD ED PE NORMAL - Vitals Vital signs reviewed: Yes - General General: Alert and oriented X 3, No acute distress - Extremities Extremities: Other (1cm L palm laceration, mid-palm. Good flexor tendon strength in each digit and no distal NV compromise.) - Neuro Neuro: Alert and oriented X 3, Normal speech Results - Vitals Vitals: Vital Signs - 24 hr 03/04/22 03/04/22 14:51 15:17 Temperature 36.4 C L 36.8 C Heart Rate 110 H 87 Respiratory 16 16 Rate Blood Pressure 150/82 H 122/71 O2 Saturation 100 96 Oxygen O2 Source Room air Procedures - Laceration (location) L palm Length in cm: 1 Wound type: Linear Neurovascular status: Sensory intact, Motor intact, Vascular intact Tendon involvement: Tendon intact Anesthesia: Lidocaine 1% with epi Wound preparation: Hibiclens, Irrigated copiously NS Skin layer closure: Nylon, Interrupted, Size #-0 - enter number (4-0), Sutures - enter # (2) Other: Patient tolerated well, No complications, Neurovascular intact, Tetanus UTD Departure - Departure Disposition: 01 Home, Self Care Clinical Impression: Laceration Condition: Good Record reviewed to determine appropriate education?: Yes Instructions: ED Laceration Hand Comments: Come back for any signs of infection which would include: Redness, swelling, drainage, increased pain, or fevers. You can wash it soap and water. Keep it covered and moist with bacitracin ointment which is available over the counter; avoid neosporin. Follow-up with your physician in About 14 days for suture removal. Discharge Date/Time: 03/04/22 15:22
[2022-03-04 15:18] VITALS: BP 122/71
== END 2022-03-04 15:22 | disposition home or self-care (01) ==
LOC: ED 14:45
DX: S61.412A Laceration without foreign body of left hand, initial encounter (principal); W26.8XXA Contact with other sharp object(s), not elsewhere classified, initial encounter; Y93.18 Activity, surfing, windsurfing and boogie boarding
CPT/HCPCS: 12001; 99281